=== PATIENT | female | born 2000 | race Caucasian/White ===

== ENCOUNTER 2018-11-10 23:48 | Emergency (ER) | payer SELFPAY ==
[~2018-11-10] VITALS: Ht 165.1 cm; Wt 65.8 kg
[2018-11-11 00:29] LABS: BILIRUBIN,URINE NEGATIVE (NEGATIVE); CLARITY,URINE CLEAR; COLOR,URINE YELLOW; GLUCOSE, URINE (UA) NEGATIVE (NEGATIVE); KETONES,URINE NEGATIVE (NEGATIVE); LEUKOCYTE ESTERASE ,URINE 3+ (NEGATIVE); NITRITE,URINE NEGATIVE (NEGATIVE); PH,URINE 7 (5-9); PROTEIN,URINE NEGATIVE (NEGATIVE); UROBILINOGEN,URINE NORMAL (NORMAL)
[2018-11-11 00:43] LABS: RBC,URINE 0-2 /HPF
[2018-11-11 00:44] LABS: BACTERIA,URINE MODERATE /HPF; TRICHOMONAS,URINE LARGE /HPF
[2018-11-11] MEDS ORDERED: LACTATED RINGERS 1,000 ML IV STA (01:06)
[2018-11-11 01:16] LABS: BASOPHILS % (AUTO) 0 % (0-10); EOSINOPHILS # (AUTO) 0.3 10^3/uL (0.0-0.3); EOSINOPHILS % (AUTO) 4 % (0-10); HEMATOCRIT 35 % (35-52); HEMOGLOBIN 10.4 G/DL (11.5-16.0); LYMPHOCYTES % (AUTO) 34 % (12-44); MEAN CORPUSCULAR HEMOGLOBIN 24 PG (25-34); MEAN CORPUSCULAR HGB CONC 30 G/DL (32-36); MEAN CORPUSCULAR VOLUME 78 FL (80-99); MEAN PLATELET VOLUME 11.5 FL (7.4-10.4); MONOCYTES # (AUTO) 0.9 X 10^3 (0.0-1.0); MONOCYTES % (AUTO) 10 % (0-12); NEUTROPHILS # (AUTO) 4.7 X 10^3 (1.8-7.8); NEUTROPHILS % (AUTO) 53 % (42-75); PLATELET COUNT 430 10^3/uL (130-400); RED CELL DISTRIBUTION WIDTH 15.8 % (10.0-14.5)
[2018-11-11 01:29] LABS: ALANINE AMINOTRANSFERASE 12 U/L (0-55); ALBUMIN 4.8 GM/DL (3.2-4.5); ALKALINE PHOSPHATASE 79 U/L (40-136); BILIRUBIN,TOTAL 0.2 MG/DL (0.1-1.0); BUN/CREATININE RATIO 10; CALCIUM 10.2 MG/DL (8.5-10.1); CARBON DIOXIDE 22 MMOL/L (21-32); CHLORIDE 106 MMOL/L (98-107); CREATININE SERUM 1.12 MG/DL (0.60-1.30); GFR ESTIMATED > 60; GLUCOSE 84 MG/DL (70-105); POTASSIUM 4.5 MMOL/L (3.6-5.0); SODIUM 140 MMOL/L (135-145); TOTAL PROTEIN 8.2 GM/DL (6.4-8.2)
[2018-11-11] MEDS ORDERED: KETOROLAC 30 MG/ML VIAL IVP STA (02:40)
[2018-11-11] MEDS ORDERED: metroNIDAZOLE 500 MG (FLAGYL) TAB PO STA (02:40)
[2018-11-11] MEDS ORDERED: ONDANSETRON 4 MG/2 ML (SDV) Z0FRAN IVP ONE (02:45)
--- NOTE | 2018-11-11 02:49 | ED Abdominal Pain ---
General Chief Complaint: Abdominal/GI Problems Stated Complaint: RT SIDE ABD PAIN Nursing Triage Note: Pt complaining of RLQ pain that radiates to her back, started earlier in the day. Sepsis Screen: No Definite Risk Source of Information: Patient Exam Limitations: No Limitations History of Present Illness Date Seen by Provider: November 11, 2018 Time Seen by Provider: 00:14 Initial Comments Here with lower abdominal pain that radiates to her back on the right side. Also notes blood when wiping after urination. Denies discharge otherwise. Denies vaginal pain. Pain is an going on today. Denies nausea or vomiting. Denies fever or chills. Timing/Duration: 12-24 Hours Severity/Quality: Moderate Location: RLQ, Flank Radiation: Back Activities at Onset: None Modifying Factors: Worsens With Urinating Associated Symptoms: Back Pain; No Fever/Chills, No Fatigue, No Nausea/Vomiting , No Swelling/Mass in Abdomen, No Weakness Allergies and Home Medications Allergies Coded Allergies: No Known Drug Allergies (Unverified , 11/11/18) Patient Home Medication List Home Medication List Reviewed: Yes Review of Systems Review of Systems Constitutional: no symptoms reported EENTM: No Symptoms Reported Respiratory: No Symptoms Reported Cardiovascular: No Symptoms Reported Gastrointestinal: See HPI, Abdominal Pain; Denies Diarrhea, Denies Nausea, Denies Vomiting Genitourinary: Discharge, Hematuria, Pain Musculoskeletal: no symptoms reported Skin: no symptoms reported Psychiatric/Neurological: No Symptoms Reported Past Atvmhpp-Vlejyt-Bbrkwq Hx Past Med/Social Hx: Reviewed Nursing Past Med/Soc Hx Patient Social History Alcohol Use: Denies Use Recreational Drug Use: No Smoking Status: Never a Smoker 2nd Hand Smoke Exposure: No Recent Foreign Travel: No Contact w/Someone Who Travel: No Recent Infectious Disease Expo: No Recent Hopitalizations: No Physical Abuse: No Sexual Abuse: No Mistreated: No Past Medical History Surgeries: No Respiratory: No Cardiac: No Neurological: No Genitourinary: No Gastrointestinal: No Musculoskeletal: No Endocrine: No HEENT: No Cancer: No Psychosocial: Yes Depression Integumentary: No Blood Disorders: No Family Medical History Reviewed Nursing Family Hx Physical Exam Vital Signs Vital Signs - First Documented 11/11/18 00:10 Temp 97.7 Pulse 87 Resp 16 B/P (MAP) 135/60 (85) Pulse Ox 100 O2 Delivery Room Air Capillary Refill : Less Than 3 Seconds Height/Weight/BMI Height: 5'5.00" Weight: 145lbs. oz. 65.664150ur; BMI Method:Estimated General Appearance: WD/WN, no apparent distress HEENT: PERRL/EOMI, pharynx normal Neck: full range of motion, supple Respiratory: lungs clear, normal breath sounds Cardiovascular: regular rate, rhythm, no murmur Gastrointestinal: soft; No guarding, No rebound; tenderness (mild suprapubic) Extremities: non-tender, normal inspection Back: normal inspection, no CVA tenderness, no vertebral tenderness Neurologic/Psychiatric: alert, oriented x 3 Skin: normal color, warm/dry Progress/Results/Core Measures Results/Orders Lab Results Laboratory Tests Test 11/11/18 00:10 11/11/18 00:13 Range/Units White Blood Count 9.0 4.3-11.0 10^3/uL Red Blood Count 4.42 4.35-5.85 10^6/uL Hemoglobin 10.4 L 11.5-16.0 G/DL Hematocrit 35 35-52 % Mean Corpuscular Volume 78 L 80-99 FL Mean Corpuscular Hemoglobin 24 L 25-34 PG Mean Corpuscular Hemoglobin Concent 30 L 32-36 G/DL Red Cell Distribution Width 15.8 H 10.0-14.5 % Platelet Count 430 H 130-400 10^3/uL Mean Platelet Volume 11.5 H 7.4-10.4 FL Neutrophils (%) (Auto) 53 42-75 % Lymphocytes (%) (Auto) 34 12-44 % Monocytes (%) (Auto) 10 0-12 % Eosinophils (%) (Auto) 4 0-10 % Basophils (%) (Auto) 0 0-10 % Neutrophils # (Auto) 4.7 1.8-7.8 X 10^3 Lymphocytes # (Auto) 3.0 1.0-4.0 X 10^3 Monocytes # (Auto) 0.9 0.0-1.0 X 10^3 Eosinophils # (Auto) 0.3 0.0-0.3 10^3/uL Basophils # (Auto) 0.0 0.0-0.1 10^3/uL Sodium Level 140 135-145 MMOL/L Potassium Level 4.5 3.6-5.0 MMOL/L Chloride Level 106 98-107 MMOL/L Carbon Dioxide Level 22 21-32 MMOL/L Anion Gap 12 5-14 MMOL/L Blood Urea Nitrogen 11 7-18 MG/DL Creatinine 1.12 0.60-1.30 MG/DL Estimat Glomerular Filtration Rate > 60 BUN/Creatinine Ratio 10 Glucose Level 84 70-105 MG/DL Calcium Level 10.2 H 8.5-10.1 MG/DL Corrected Calcium 8.5-10.1 MG/DL Total Bilirubin 0.2 0.1-1.0 MG/DL Aspartate Amino Transf (AST/SGOT) 18 5-34 U/L Alanine Aminotransferase (ALT/SGPT) 12 0-55 U/L Alkaline Phosphatase 79 40-136 U/L Total Protein 8.2 6.4-8.2 GM/DL Albumin 4.8 H 3.2-4.5 GM/DL Urine Color YELLOW Urine Clarity CLEAR Urine pH 7 5-9 Urine Specific [place] 1.010 L 1.016-1.022 Urine Protein NEGATIVE NEGATIVE Urine Glucose (UA) NEGATIVE NEGATIVE Urine Ketones NEGATIVE NEGATIVE Urine Nitrite NEGATIVE NEGATIVE Urine Bilirubin NEGATIVE NEGATIVE Urine Urobilinogen NORMAL NORMAL MG/DL Urine Leukocyte Esterase 3+ H NEGATIVE Urine RBC (Auto) 2+ H NEGATIVE Urine RBC 0-2 /HPF Urine WBC 2-5 /HPF Urine Squamous Epithelial Cells 10-25 H /HPF Urine Crystals NONE /LPF Urine Bacteria MODERATE H /HPF Urine Casts NONE /LPF Urine Mucus NEGATIVE /LPF Urine Trichomonas LARGE H /HPF Urine Culture Indicated NO My Orders Orders - PEGGY OSWALD MD Urine Bedside (11/11/18 00:18) Ua Culture If Indicated (11/11/18 00:18) Cbc With Automated Diff (11/11/18 01:06) Comprehensive Metabolic Panel (11/11/18 01:06) Ct Abdomen/Pelvis W (11/11/18 01:06) Lactated Ringers (Lr 1000 Ml Iv Solution (11/11/18 01:06) Toradol 30 Mg Ivp (11/11/18 02:40) Zofran Iv (11/11/18 02:45) Metronidazole Tablet (Flagyl Tablet) (11/11/18 02:40) Neis Masoud Dna Urine Test (11/11/18 02:40) Chlam Dna Probe (11/11/18 02:40) Vital Signs/I&O 11/11/18 00:10 Temp 97.7 Pulse 87 Resp 16 B/P (MAP) 135/60 (85) Pulse Ox 100 O2 Delivery Room Air Blood Pressure Mean: 85 Progress Progress Note : Progress Note Seen and evaluated. IV, labs, UA and UCG ordered. is negative. CT abdomen and pelvis ordered. No acute findings on CT abdomen and pelvis. Normal saline 1 L bolus was given. Trichomonas infection. This is discussed privately with the patient. Flagyl 2 g by mouth given. Zofran 4 mg IV with Flagyl and Toradol 30 mg IV given. Discharged home with return precautions. Patient verbalize understanding of instructions and agreement with plan. GC and chlamydia urine DNA test ordered and will treat if positive. Patient instructed that we will call for positive results. Diagnostic Imaging Diagonstic Imaging: CT Plain Films/CT/US/NM/MRI: abdomen, pelvis Comments No acute findings of the CT abdomen and pelvis Reviewed: Reviewed Night [facility] Study Departure Impression Primary Impression: Urogenital trichomoniasis, unspecified Disposition: HOME, SELF-CARE Condition: Stable Departure-Patient Inst. Decision time for Depature: 02:47 Referrals: NO,LOCAL PHYSICIAN (PCP/Family) Primary Care Physician Patient Instructions: Trichomoniasis Add. Discharge Instructions: All discharge instructions reviewed with patient and/or family. Voiced understanding. You may take ibuprofen 600 mg every 8 hours as needed for pain. You may take Tylenol/acetaminophen 1000 mg every 8 hours as needed for pain. Drink plenty of fluids. Follow-up with your Dr. in a few days for recheck. Return for worse pain , fever, vomiting, weakness, breathing problems or other concerns as needed. If your cultures are positive you will be called. PEGGY OSWALD MD November 11, 2018 02:49
[2018-11-11 03:07] VITALS: BP 135/60
--- NOTE | 2018-11-11 06:08 | Diagnostic Imaging Report ---
PROCEDURE: CT abdomen and pelvis with contrast. TECHNIQUE: Multiple contiguous axial images were obtained through the abdomen and pelvis after administration of intravenous contrast. Auto Exposure Controls were utilized during the CT exam to meet ALARA standards for radiation dose reduction. INDICATION: Abdominal pain. COMPARISON: None. FINDINGS: Lung bases are clear. The liver, gallbladder, pancreas, spleen, adrenals, kidneys, collecting systems and bladder are negative. No evidence of appendicitis. Reproductive structures are grossly unremarkable. There is a large amount of stool throughout the colon. No free intraperitoneal air or fluid. No lymphadenopathy. No evidence of bowel obstruction. No acute osseous findings. IMPRESSION: 1. No acute CT findings in the abdomen or pelvis. 2. Large amount of stool throughout the colon may represent a degree of constipation. Dictated by: Dictated on workstation # [id number]
== END 2018-11-11 03:05 | disposition home or self-care (01) ==
LOC: ER 23:53
DX: A59.09 Other urogenital trichomoniasis (principal); F32.9 Major depressive disorder, single episode, unspecified
CPT/HCPCS: 36415; 74177; 80053; 81000; 84703; 85025; 87591; 96360

== ENCOUNTER 2019-04-24 15:02 | Emergency (ER) | payer OTHER, MEDICAID ==
[~2019-04-24] VITALS: Ht 167 cm; Wt 68.2 kg
[2019-04-24] MEDS ORDERED: ACETAMINOPHEN 325 MG TABLET PO STA (15:59)
[2019-04-24] MEDS ORDERED: TETANUS,DIPTH,PERTUSS P/F (BOOSTRIX) 0.5 ML VIAL IM ONE (16:00)
[2019-04-24] MEDS ORDERED: AMOX-358 PO (16:12)
--- NOTE | 2019-04-24 16:14 | ED Lower Extremity ---
General Chief Complaint: Bite-Animal/Human/Insect Stated Complaint: DOG BITE ON RT LEG Nursing Triage Note: Pt ambulates to triage with c/o dog bit to right lateral thigh. Pt was volunteering at the [email or web address]. Dog has UTD rabies vaccine. Nursing Sepsis Screen: No Definite Risk History of Present Illness Date Seen by Provider: Apr 24, 2019 Time Seen by Provider: 15:45 Initial Comments 18-year-old female presents with dog bite to her right lateral thigh. She was volunteering at the [employer]. The dog is current on rabies vaccine and is staying at the [employer] where he will continue to be monitored. Patient is unsure of her last tetanus vaccine. Onset: just prior to arrival Pain/Injury Location: right thigh Method of Injury: incised Modifying Factors: Improves With Rest Allergies and Home Medications Allergies Coded Allergies: No Known Drug Allergies (Unverified , 11/11/18) Home Medications Amoxicillin/Potassium Clav 1 Each Tablet, 1 EACH PO BID Prescribed by: MARIA T MILTON on 04/24/19 1612 Patient Home Medication List Home Medication List Reviewed: Yes Review of Systems Constitutional: no symptoms reported, see HPI Skin: see HPI, other (dog bite to right lateral thigh.) All Other Systems Reviewed Negative Unless Noted: Yes Past Etwasdg-Efmsqj-Lgbpza Hx Past Med/Social Hx: Reviewed Nursing Past Med/Soc Hx Patient Social History Alcohol Use: Denies Use Recreational Drug Use: No Smoking Status: Current Everyday Smoker Type Used: Cigarettes 2nd Hand Smoke Exposure: No Recent Foreign Travel: No Contact w/Someone Who Travel: No Recent Infectious Disease Expo: No Recent Hopitalizations: No Physical Abuse: No Sexual Abuse: No Mistreated: No Fear: No Seasonal Allergies Seasonal Allergies: No Past Medical History Surgeries: No Respiratory: No Cardiac: No Neurological: No Genitourinary: No Gastrointestinal: No Musculoskeletal: No Endocrine: No HEENT: No Cancer: No Psychosocial: Yes Depression Integumentary: No Blood Disorders: No Physical Exam Vital Signs Vital Signs - First Documented 04/24/19 15:41 Temp 35.3 Pulse 75 Resp 18 B/P (MAP) 118/72 (87) Pulse Ox 100 O2 Delivery Room Air Capillary Refill : Less Than 3 Seconds Height, Weight, BMI Height: 5'5.00" Weight: 145lbs. oz. 65.228853rt; 24.00 BMI Method:Estimated General Appearance: WD/WN, mild distress Cardiovascular: normal peripheral pulses, regular rate, rhythm Respiratory: chest non-tender, lungs clear Legs: right leg pain, right leg soft tissue tenderness (right lateral eye), r ight leg swelling (trace, right thigh) Knees: right knee non-tender, right knee normal inspection, right knee normal range of motion, right knee no evidence of injury Neurologic/Tendon: normal sensation, normal motor functions Neurologic/Psychiatric: no motor/sensory deficits, alert, normal mood/affect, oriented x 3 Skin: normal color, warm/dry, other (2x2 cm puncture wound to thigh, 3 smaller superficial puncture wounds. ) Progress/Results/Core Measures Results/Orders My Orders Orders - MARIA T MILTON Dipht,Pertuss(Acell),Tet Adult (Boostrix (04/24/19 16:00) Acetaminophen Tablet/Caplet (Tylenol T (04/24/19 15:59) Medications Given in ED Current Medications Medications Dose Ordered Sig/Demetri Route Start Time Stop Time Status Last Admin Dose Admin Diphtheria/ Tetanus/Acell Pertussis 0.5 ml ONCE ONCE IM 04/24/19 16:00 04/24/19 16:01 DC 04/24/19 16:09 0.5 ML Vital Signs/I&O 04/24/19 04/24/19 15:41 16:23 Temp 35.3 35.3 Pulse 75 75 Resp 18 18 B/P (MAP) 118/72 (87) 118/72 (87) Pulse Ox 100 100 O2 Delivery Room Air Room Air Blood Pressure Mean: 87 Progress Progress Note : Time: 15:45 Progress Note Wound copiously irrigated with 500 ML's of sterile saline and Hibiclens. Patient tolerated the procedure well. Triple antibiotic ointment and bulky sterile dressing applied. Tylenol 650 mg for pain and tetanus vaccine given. 1610 appointment made for follow-up with Dr. Parrish for later this week. Discharge instructions and return precautions reviewed with the patient. Departure Impression Primary Impression: Dog bite of right thigh Qualified Codes: S71.151A - Open bite, right thigh, initial encounter; W54.0 XXA - Bitten by dog, initial encounter Disposition: HOME, SELF-CARE Condition: Improved Departure-Patient Inst. Decision time for Depature: 16:10 Referrals: DEIRDRE PARRISH MD NO,LOCAL PHYSICIAN (PCP) Primary Care Physician Patient Instructions: Animal Bites (DC) Add. Discharge Instructions: Clean wound thoroughly with peroxide twice a day and apply triple antibiotic ointment with bulky dressings. You have an appointment scheduled with Dr. PARRISH's office on 04/28/19 at 9:30 in the morning. Take your antibiotics one tablet twice daily as prescribed. Ice to right thigh 20 minutes every 2 hours while awake. You may alternate between ibuprofen 600 mg and Tylenol 650 mg every 4 hours for pain and swelling. Return to the emergency department for fever greater than 101 not relieved by Tylenol or ibuprofen, discolored or foul smelling drainage from the leg wound, or new concerns. All discharge instructions reviewed with patient and/or family. Voiced understanding. Scripts Amoxicillin/Potassium Clav (Augmentin 875-125 Tablet) 1 Each Tablet 1 EACH PO BID, #20 TAB 0 Refills Prov: MARIA T MILTON 04/24/19 Copy Copies To 1: LESLIE GUTIÉRREZ APRN, AMY ARNP Apr 24, 2019 16:14
[2019-04-24 16:23] VITALS: BP 118/72
== END 2019-04-24 16:25 | disposition home or self-care (01) ==
LOC: EDUNIT# 15:02 → ER 15:04
DX: S71.151A Open bite, right thigh, initial encounter (principal); F32.9 Major depressive disorder, single episode, unspecified; F17.210 Nicotine dependence, cigarettes, uncomplicated; Z23 Encounter for immunization; W54.0XXA Bitten by dog, initial encounter
CPT/HCPCS: 90715; 99284

== ENCOUNTER 2019-07-20 00:01 | Emergency (ER) | payer MEDICAID, OTHER ==
[~2019-07-20] VITALS: Ht 167 cm; Wt 69.1 kg
[~2019-07-20 00:01] MED LIST: AMOX-358 PO
[2019-07-20 01:08] LABS: BILIRUBIN,URINE NEGATIVE (NEGATIVE); CLARITY,URINE CLEAR; COLOR,URINE YELLOW; GLUCOSE, URINE (UA) NEGATIVE (NEGATIVE); KETONES,URINE TRACE (NEGATIVE); LEUKOCYTE ESTERASE ,URINE NEGATIVE (NEGATIVE); NITRITE,URINE NEGATIVE (NEGATIVE); PROTEIN,URINE NEGATIVE (NEGATIVE)
--- NOTE | 2019-07-20 01:08 | ED GU-Female ---
General Chief Complaint: Abdominal/GI Problems Stated Complaint: ABD PAIN 14 WKS Nursing Triage Note: abdominal pain, vaginal bleeding Nursing Sepsis Screen: No Definite Risk Source: patient Exam Limitations: no limitations History of Present Illness Date Seen by Provider: Jul 20, 2019 Time Seen by Provider: 00:51 Initial Comments Patient presents to ER by private conveyance with her significant other and c yuliet complaint of low pelvic abdominal pain bilateral. She denies dysuria fever discharge but she did have a little spotting when she wiped earlier tonight. Last intercourse was yesterday, Wednesday. She had trichomonas earlier in the which was treated sufficiently. She follows with Dr. Kennedy. She is a at 15 weeks and 3 days based on her EDC of January 07 are or ultrasound at Dr. Kennedy. She denies any fever nausea vomiting diarrhea but she has chronic constipation. Allergies and Home Medications Allergies Coded Allergies: No Known Drug Allergies (Unverified , 11/11/18) Patient Home Medication List Home Medication List Reviewed: Yes Review of Systems Review of Systems Constitutional: No chills, No diaphoresis EENTM: No ear discharge, No ear pain Respiratory: No cough, No short of breath Cardiovascular: No chest pain, No edema Gastrointestinal: abdominal pain; No constipation, No diarrhea, No nausea Genitourinary: denies burning, denies discharge, denies dysuria; hematuria : Yes Expected Date of Delivery: Jan 08, 2020 Musculoskeletal: No back pain, No joint pain Past Ecgfvvn-Esthxo-Piqosl Hx Patient Social History Alcohol Use: Denies Use Recreational Drug Use: No Smoking Status: Current Everyday Smoker Type Used: Cigarettes 2nd Hand Smoke Exposure: No Recent Foreign Travel: No Contact w/Someone Who Travel: No Recent Infectious Disease Expo: No Recent Hopitalizations: No Physical Abuse: No Sexual Abuse: No Mistreated: No Fear: No Immunizations Up To Date Tetanus Booster (TDap): Unknown Seasonal Allergies Seasonal Allergies: No Past Medical History Surgeries: No Respiratory: No Cardiac: No Neurological: No : Yes Expected Date of Delivery: Jan 08, 2020 Last Menstrual Period: Apr 04, 2019 Genitourinary: No Gastrointestinal: No Musculoskeletal: No Endocrine: No HEENT: No Cancer: No Psychosocial: Yes Depression Integumentary: No Blood Disorders: No Physical Exam Vital Signs Vital Signs - First Documented 07/20/19 00:49 Temp 36.7 Pulse 100 Resp 18 B/P (MAP) 124/59 (80) Pulse Ox 99 O2 Delivery Room Air Capillary Refill : Less Than 3 Seconds Height, Weight, BMI Height: 5'5.00" Weight: 145lbs. oz. 65.037506ys; 24.00 BMI Method:Estimated General Appearance: WD/WN, no apparent distress HEENT: normal ENT inspection, pharynx normal Neck: full range of motion, normal inspection Cardiovascular: normal peripheral pulses, regular rate, rhythm Respiratory: no respiratory distress, no accessory muscle use Gastrointestinal: normal bowel sounds, soft, tenderness (suprapubic) Genital/Rectal: normal genital exam (external) Extremities: normal inspection, no pedal edema Neurologic/Psychiatric: alert, normal mood/affect, oriented x 3 Skin: normal color, warm/dry Progress/Results/Core Measures Suspected Sepsis Recent Fever Within 48 Hours: No Infection Criteria Present: None New/Unexplained Altered Menta: No Sepsis Screen: No Definite Risk SIRS Temperature: Pulse: 100 Respiratory Rate: 18 Blood Pressure 124 /59 Mean: 80 Results/Orders Lab Results Laboratory Tests Test 07/20/19 00:53 Range/Units Urine Color YELLOW Urine Clarity CLEAR Urine pH 6.0 5-9 Urine Specific [place] >=1.030 1.016-1.022 Urine Protein NEGATIVE NEGATIVE Urine Glucose (UA) NEGATIVE NEGATIVE Urine Ketones TRACE H NEGATIVE Urine Nitrite NEGATIVE NEGATIVE Urine Bilirubin NEGATIVE NEGATIVE Urine Urobilinogen 1.0 < = 1.0 MG/DL Urine Leukocyte Esterase NEGATIVE NEGATIVE Urine RBC (Auto) 2+ H NEGATIVE Urine RBC 5-10 H /HPF Urine WBC RARE /HPF Urine Squamous Epithelial Cells 2-5 /HPF Urine Crystals NONE /LPF Urine Bacteria TRACE /HPF Urine Casts NONE /LPF Urine Mucus MODERATE H /LPF Urine Culture Indicated NO My Orders Orders - JESS NAVAS Ua Culture If Indicated (07/20/19 00:07) Urine Bedside (07/20/19 00:07) Hydrocodone/Apap 5/325 Tablet (Lortab 5 (07/20/19 01:15) Wet Prep (07/20/19 01:05) Medications Given in ED Current Medications Medications Dose Ordered Sig/Demetri Route Start Time Stop Time Status Last Admin Dose Admin Acetaminophen/ Hydrocodone Bitart 1 tab ONCE ONCE PO 07/20/19 01:15 07/20/19 01:16 DC 07/20/19 01:13 1 TAB Vital Signs/I&O 07/20/19 07/20/19 00:49 01:13 Temp 36.7 36.7 Pulse 100 Resp 18 B/P (MAP) 124/59 (80) Pulse Ox 99 O2 Delivery Room Air Capillary Refill : Less Than 3 Seconds Blood Pressure Mean: 80 Progress Note : Time: 02:00 Progress Note Wet prep all negative except for a few white blood cells. Urinalysis shows microscopic amount of blood. Perhaps the blood she saw on wiping is from the urine however there is no evidence of infection. We can set her up with ultrasound outpatient and have her follow-up with her primary care doctor as necessary. heart tones in the 160 range. Hydrocodone provided good control of her pain. Potentially a kidney stone. We'll discuss imaging versus conservative management. Arab related bleeding from the cervix/vagina versus potential subchorionic bleed? We don't have the ultrasound to compare so we will recommend she follow up with her primary care doctor. Departure Impression Primary Impression: with abdominal pain of lower quadrant, antepartum Additional Impression: Hematuria of unknown etiology Disposition: 01 HOME, SELF-CARE Condition: Stable Departure-Patient Inst. Decision time for Depature: 02:06 Referrals: NO,LOCAL PHYSICIAN (PCP/Family) Primary Care Physician Patient Instructions: Blood in the Urine (Hematuria) in Adults, Stomach Pain in Early Add. Discharge Instructions: There are several reasons that could be causing your stomach pain. Constipation is one. You may possibly be passing a kidney stone. I would suggest using Tylenol for the pain and following up with your [facility]IVE THERAPIST. If you have intractable abdominal pain then you may use one tablet of hydrocodone every 6 hours. This will worsen constipation. MiraLAX 1 capful in 6-8 ounces of fluid 1-2 times a day is safe for cleaning out your constipation. Drink with lots of fluids. All discharge instructions reviewed with patient and/or family. Voiced understanding. Scripts Hydrocodone Bit/Acetaminophen (Hydrocodone/Acetaminophen 5/325mg Tablet) 1 Tab Tab 1 EACH PO Q4-6HR PRN for PAIN-MODERATE MDD 10 for 3 Days, #10 TAB 0 Refills Prov: JESS NAVAS 07/20/19 JESS NAVAS Jul 20, 2019 01:08
[2019-07-20 01:14] LABS: BACTERIA,URINE TRACE /HPF; WBC,URINE RARE /HPF
[2019-07-20] MEDS ORDERED: HYDROcodone/APAP 5 MG/325 MG (LORTAB) TAB PO ONE (01:15)
[2019-07-20] MEDS ORDERED: ACHD5005 PO (02:13)
[2019-07-20 02:21] VITALS: BP 128/50
== END 2019-07-20 02:22 | disposition home or self-care (01) ==
LOC: EDUNIT# 00:01 → ER 00:03
DX: O26.892 Other specified pregnancy related conditions, second trimester (principal); R10.30 Lower abdominal pain, unspecified; R31.9 Hematuria, unspecified; O99.342 Other mental disorders complicating pregnancy, second trimester; F32.9 Major depressive disorder, single episode, unspecified; O99.332 Smoking (tobacco) complicating pregnancy, second trimester; F17.210 Nicotine dependence, cigarettes, uncomplicated; Z3A.15 15 weeks gestation of pregnancy
CPT/HCPCS: 81000; 84703; 87210

== ENCOUNTER 2021-02-28 15:38 | Emergency (ER) | payer MEDICAID ==
[~2021-02-28] VITALS: Ht 167 cm; Wt 56.0 kg
[~2021-02-28 15:38] MED LIST changes: +ACHD5005 PO
--- NOTE | 2021-02-28 16:12 | ED General ---
General Stated Complaint: PEREZ, CRAMPING Source of Information: Patient Exam Limitations: No Limitations (RUTHANN HENNING APRN) History of Present Illness Date Seen by Provider: Feb 28, 2021 Time Seen by Provider: 16:11 Initial Comments To ER with headache, lower abdominal cramping present for 2 weeks since she found out she was at home. G3, P2. No bleeding Timing/Duration: 1 Week (2 weeks) Severity: Moderate Associated Systoms: Denies Symptoms (RUTHANN HENNING APRN) Allergies and Home Medications Allergies Coded Allergies: diphenhydramine (Verified Adverse Reaction, Severe, hallucinations, 02/28/21) Home Medications Cefuroxime Axetil 250 Mg Tablet, 250 MG PO BID Prescribed by: RUTHANN HENNING on 02/28/21 1747 Hydrocodone Bit/Acetaminophen 1 Tab Tab, 1 EACH PO Q4-6HR PRN for PAIN-MODERATE Prescribed by: JESS NAVAS on 07/20/19 0213 Patient Home Medication List Home Medication List Reviewed: Yes (RUTHANN HENNING APRN) Review of Systems Review of Systems Constitutional: see HPI EENTM: see HPI Respiratory: no symptoms reported Cardiovascular: no symptoms reported Genitourinary: no symptoms reported Musculoskeletal: no symptoms reported Skin: no symptoms reported Psychiatric/Neurological: No Symptoms Reported Hematologic/Lymphatic: No Symptoms Reported (RUTHANN HENNING APRN) Past Rwrsbyh-Hbtnsx-Tapsnp Hx Immunizations Up To Date Tetanus Booster (TDap): Unknown (RUTHANN HENNING APRN) Seasonal Allergies Seasonal Allergies: No (RUTHANN HENNING APRN) Past Medical History Surgeries: No Respiratory: No Cardiac: No Neurological: No Genitourinary: No Gastrointestinal: No Musculoskeletal: No Endocrine: No HEENT: No Cancer: No Psychosocial: Yes Depression Integumentary: No Blood Disorders: No (RUTHANN HENNING APRN) Physical Exam Vital Signs Vital Signs - First Documented 02/28/21 16:12 Temp 37.0 Pulse 76 Resp 16 B/P (MAP) 115/64 (81) Pulse Ox 98 O2 Delivery Room Air (COMFORT BALLARD MD) Vital Signs Capillary Refill : (RUTHANN HENNING APRN) Height, Weight, BMI Height: 5'5.00" Weight: 145lbs. oz. 65.726850gb; 24.00 BMI Method:Estimated General Appearance: No Apparent Distress, WD/WN Eyes: Bilateral Eye Normal Inspection, Bilateral Eye PERRL, Bilateral Eye EOMI HEENT: PERRL/EOMI, TMs Normal Neck: Full Range of Motion, Normal Inspection Respiratory: No Accessory Muscle Use, No Respiratory Distress Cardiovascular: Regular Rate, Rhythm, Normal Peripheral Pulses Gastrointestinal: Normal Bowel Sounds, Non Tender, Soft Extremity: Normal Capillary Refill, Normal Inspection Neurologic/Psychiatric: Alert, Oriented x3 Skin: Normal Color, Warm/Dry (RUTHANN HENNING APRN) Progress/Results/Core Measures Suspected Sepsis SIRS Temperature: Pulse: Respiratory Rate: Laboratory Tests 02/28/21 16:25: White Blood Count 11.6H Blood Pressure / Mean: Laboratory Tests 02/28/21 16:25: Creatinine 0.70, Platelet Count 356 (RUTHANN HENNING APRN) Results/Orders Lab Results Laboratory Tests Test 02/28/21 16:25 02/28/21 17:25 Range/Units White Blood Count 11.6 H 4.3-11.0 10^3/uL Red Blood Count 4.03 3.80-5.11 10^6/uL Hemoglobin 12.3 11.5-16.0 g/dL Hematocrit 38 35-52 % Mean Corpuscular Volume 93 80-99 fL Mean Corpuscular Hemoglobin 31 25-34 pg Mean Corpuscular Hemoglobin Concent 33 32-36 g/dL Red Cell Distribution Width 13.7 10.0-14.5 % Platelet Count 356 130-400 10^3/uL Mean Platelet Volume 10.0 9.0-12.2 fL Immature Granulocyte % (Auto) 0 % Neutrophils (%) (Auto) 67 42-75 % Lymphocytes (%) (Auto) 23 12-44 % Monocytes (%) (Auto) 8 0-12 % Eosinophils (%) (Auto) 2 0-10 % Basophils (%) (Auto) 0 0-10 % Neutrophils # (Auto) 7.8 1.8-7.8 10^3/uL Lymphocytes # (Auto) 2.6 1.0-4.0 10^3/uL Monocytes # (Auto) 1.0 0.0-1.0 10^3/uL Eosinophils # (Auto) 0.2 0.0-0.3 10^3/uL Basophils # (Auto) 0.0 0.0-0.1 10^3/uL Immature Granulocyte # (Auto) 0.0 0.0-0.1 10^3/uL Sodium Level 135 135-145 MMOL/L Potassium Level 3.8 3.6-5.0 MMOL/L Chloride Level 104 98-107 MMOL/L Carbon Dioxide Level 26 21-32 MMOL/L Anion Gap 5 5-14 MMOL/L Blood Urea Nitrogen 8 7-18 MG/DL Creatinine 0.70 0.60-1.30 MG/DL Estimat Glomerular Filtration Rate 105 BUN/Creatinine Ratio 11 Glucose Level 61 L 70-105 MG/DL Calcium Level 9.5 8.5-10.1 MG/DL Human Chorionic Gonadotropin, Quant 050209 H <5 MIU/ML Serum Test, Qualitative POSITIVE NEGATIVE Urine Color YELLOW Urine Clarity SL CLOUDY Urine pH 6.0 5-9 Urine Specific [place] >=1.030 1.016-1.022 Urine Protein NEGATIVE NEGATIVE Urine Glucose (UA) NEGATIVE NEGATIVE Urine Ketones NEGATIVE NEGATIVE Urine Nitrite POSITIVE H NEGATIVE Urine Bilirubin NEGATIVE NEGATIVE Urine Urobilinogen 0.2 < = 1.0 MG/DL Urine Leukocyte Esterase NEGATIVE NEGATIVE Urine RBC (Auto) NEGATIVE NEGATIVE Urine RBC NONE /HPF Urine WBC 2-5 /HPF Urine Squamous Epithelial Cells 10-25 H /HPF Urine Crystals NONE /LPF Urine Bacteria LARGE H /HPF Urine Casts NONE /LPF Urine Mucus SMALL H /LPF Urine Culture Indicated YES Urine Opiates Screen NEGATIVE NEGATIVE Urine Oxycodone Screen NEGATIVE NEGATIVE Urine Methadone Screen NEGATIVE NEGATIVE Urine Propoxyphene Screen NEGATIVE NEGATIVE Urine Barbiturates Screen NEGATIVE NEGATIVE Ur Tricyclic Antidepressants Screen NEGATIVE NEGATIVE Urine Phencyclidine Screen NEGATIVE NEGATIVE Urine Amphetamines Screen POSITIVE H NEGATIVE Urine Methamphetamines Screen POSITIVE H NEGATIVE Urine Benzodiazepines Screen NEGATIVE NEGATIVE Urine Cocaine Screen NEGATIVE NEGATIVE Urine Cannabinoids Screen NEGATIVE NEGATIVE (COMFORT BALLARD MD) Vital Signs/I&O 02/28/21 02/28/21 16:12 17:49 Temp 37.0 37.0 Pulse 76 74 Resp 16 16 B/P (MAP) 115/64 (81) 116/68 (81) Pulse Ox 98 99 O2 Delivery Room Air (COMFORT BALLARD MD) Vital Signs/I&O Capillary Refill : (RUTHANN HENNING APRN) Diagnostic Imaging Diagonstic Imaging: Ultrasound Comments NAME: DELORIS SCHMID [facility] REC#: [id number] PT STATUS: REG ER : 2000 PHYSICIAN: RUTHANN HENNING APRN ADMIT DATE: 02/28/21/ER Draft Date of Exam:02/28/21 US OB SINGLE FETUS<14 [id number] PROCEDURE: US OB SINGLE FETUS <14 WKS. TECHNIQUE: Multiple real-time grayscale images were obtained over the gravid uterus in various projections. INDICATION: Nausea and cramping during . Intrauterine gestational sac is present. There is normal morphology. pole is present with a crown-rump length of 1.3 cm. This indicates a gestational age of 7 weeks and 4 days. No eloina-gestational hematoma is identified. Embryonic cardiac activity is present at a rate of 127 bpm. Maternal adnexal regions are unremarkable although the ovaries were not visualized. IMPRESSION: Unremarkable early intrauterine gestation with estimated age of 7 weeks and 4 days. Sonographic EDC is 10/13/2021. 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 Decision time for Depature: 17:26 (RUTHANN HENNING APRN) Referrals: NO,LOCAL PHYSICIAN (PCP/Family) Primary Care Physician Patient Instructions: No Instuctions Given Scripts Cefuroxime Axetil (Cefuroxime) 250 Mg Tablet 250 MG PO BID, #10 TAB Prov: RUTHANN HENNING APRN 02/28/21 ATTENDING PHYSICIAN NOTE: I was physically present as attending physician in the emergency department during the care of this patient, but I was not directly involved in the decision making or delivery of care for this patient. (COMFORT BALLARD MD) RUTHANN HENNING APRN Feb 28, 2021 16:12 COMFORT BALLARD MD Mar 02, 2021 07:35
[2021-02-28] MEDS ORDERED: LACTATED RINGERS 1,000 ML IV SCH (16:30)
[2021-02-28] MEDS ORDERED: diphenhydrAMINE 50 MG/ML INJ (BENADRYL) IVP ONE (16:30)
[2021-02-28] MEDS ORDERED: ONDANSETRON 4 MG/2 ML (SDV) Z0FRAN IVP ONE (16:30)
[2021-02-28 16:57] LABS: BASOPHILS % (AUTO) 0 % (0-10); EOSINOPHILS # (AUTO) 0.2 10^3/uL (0.0-0.3); EOSINOPHILS % (AUTO) 2 % (0-10); HEMATOCRIT 38 % (35-52); HEMOGLOBIN 12.3 g/dL (11.5-16.0); LYMPHOCYTES # (AUTO) 2.6 10^3/uL (1.0-4.0); LYMPHOCYTES % (AUTO) 23 % (12-44); MEAN CORPUSCULAR HEMOGLOBIN 31 pg (25-34); MEAN CORPUSCULAR HGB CONC 33 g/dL (32-36); MEAN CORPUSCULAR VOLUME 93 fL (80-99); MONOCYTES % (AUTO) 8 % (0-12); NEUTROPHILS # (AUTO) 7.8 10^3/uL (1.8-7.8); NEUTROPHILS % (AUTO) 67 % (42-75); PLATELET COUNT 356 10^3/uL (130-400); WHITE BLOOD COUNT 11.6 10^3/uL (4.3-11.0)
[2021-02-28 16:59] LABS: POTASSIUM 3.8 MMOL/L (3.6-5.0)
--- NOTE | 2021-02-28 16:59 | Diagnostic Imaging Report ---
PROCEDURE: US OB SINGLE FETUS <14 WKS. TECHNIQUE: Multiple real-time grayscale images were obtained over the gravid uterus in various projections. INDICATION: Nausea and cramping during . Intrauterine gestational sac is present. There is normal morphology. pole is present with a crown-rump length of 1.3 cm. This indicates a gestational age of 7 weeks and 4 days. No eloina-gestational hematoma is identified. Embryonic cardiac activity is present at a rate of 127 bpm. Maternal adnexal regions are unremarkable although the ovaries were not visualized. IMPRESSION: Unremarkable early intrauterine gestation with estimated age of 7 weeks and 4 days. Sonographic EDC is 10/13/2021. Dictated by: Dictated on workstation # [id number]
[2021-02-28 17:01] LABS: CALCIUM 9.5 MG/DL (8.5-10.1)
[2021-02-28 17:05] LABS: CREATININE SERUM 0.7 MG/DL (0.60-1.30)
[2021-02-28 17:32] LABS: BILIRUBIN,URINE NEGATIVE (NEGATIVE); COLOR,URINE YELLOW; GLUCOSE, URINE (UA) NEGATIVE (NEGATIVE); KETONES,URINE NEGATIVE (NEGATIVE); LEUKOCYTE ESTERASE ,URINE NEGATIVE (NEGATIVE); NITRITE,URINE POSITIVE (NEGATIVE); PROTEIN,URINE NEGATIVE (NEGATIVE)
[2021-02-28 17:39] LABS: BACTERIA,URINE LARGE /HPF; CLARITY,URINE SL CLOUDY
[2021-02-28 17:44] LABS: AMPHETAMINE SCREEN, URINE POSITIVE (NEGATIVE); BARBITURATE SCREEN URINE NEGATIVE (NEGATIVE); BENZODIAZEPINES SCREEN URINE NEGATIVE (NEGATIVE); CANNABINOID SCREEN, URINE NEGATIVE (NEGATIVE); COCAINE SCREEN URINE NEGATIVE (NEGATIVE); METHADONE STAT NEGATIVE (NEGATIVE); METHAMPHETAMINE SCREEN URINE S POSITIVE (NEGATIVE); OPIATE SCREEN URINE NEGATIVE (NEGATIVE); OXYCODONE STAT NEGATIVE (NEGATIVE); PROPOXYPHENE STAT NEGATIVE (NEGATIVE); TRICYCLIC ANTIDEPRESSANTS SCRE NEGATIVE (NEGATIVE)
[2021-02-28] MEDS ORDERED: CEFU250T80 PO (17:47)
[2021-02-28 17:49] VITALS: BP 116/68
== END 2021-02-28 17:49 | disposition home or self-care (01) ==
LOC: EDUNIT# 15:38 → ER 15:41
DX: O23.41 Unspecified infection of urinary tract in pregnancy, first trimester (principal); O99.321 Drug use complicating pregnancy, first trimester; F15.10 Other stimulant abuse, uncomplicated; Z3A.01 Less than 8 weeks gestation of pregnancy
CPT/HCPCS: 36415; 76801; 80048; 80306; 81000; 84702; 84703; 85025; 87077; 87088; 87186

== ENCOUNTER 2021-09-30 18:50 | Inpatient (IN) | payer OTHER ==
[~2021-09-30 18:50] MED LIST changes: +CEFU250T80 PO
[2021-09-30] MEDS ORDERED: LACTATED RINGERS 1,000 ML IV ONE (19:00)
[2021-09-30 19:11] LABS: BASOPHILS # (AUTO) 0.1 10^3/uL (0.0-0.1); BASOPHILS % (AUTO) 0 % (0-10); EOSINOPHILS # (AUTO) 0.1 10^3/uL (0.0-0.3); EOSINOPHILS % (AUTO) 0 % (0-10); HEMATOCRIT 32 % (35-52); HEMOGLOBIN 9.9 g/dL (11.5-16.0); LYMPHOCYTES # (AUTO) 2.7 10^3/uL (1.0-4.0); LYMPHOCYTES % (AUTO) 13 % (12-44); MEAN CORPUSCULAR HEMOGLOBIN 26 pg (25-34); MEAN CORPUSCULAR HGB CONC 31 g/dL (32-36); MEAN CORPUSCULAR VOLUME 84 fL (80-99); MEAN PLATELET VOLUME 11.3 fL (9.0-12.2); MONOCYTES # (AUTO) 1.1 10^3/uL (0.0-1.0); MONOCYTES % (AUTO) 5 % (0-12); NEUTROPHILS # (AUTO) 17.3 10^3/uL (1.8-7.8); NEUTROPHILS % (AUTO) 80 % (42-75); PLATELET COUNT 368 10^3/uL (130-400); WHITE BLOOD COUNT 21.5 10^3/uL (4.3-11.0)
[2021-09-30] MEDS ORDERED: LIDOCAINE UROJET 2% GEL 10 ML PKG ONE (19:14)
[2021-09-30 19:31] LABS: ALANINE AMINOTRANSFERASE 33 U/L (0-55); ALBUMIN 3.4 GM/DL (3.2-4.5); ALKALINE PHOSPHATASE 297 U/L (40-136); AMYLASE 59 U/L (25-125); BILIRUBIN,TOTAL 0.4 MG/DL (0.1-1.0); BUN/CREATININE RATIO 14; CALCIUM 8.7 MG/DL (8.5-10.1); CARBON DIOXIDE 17 MMOL/L (21-32); CHLORIDE 109 MMOL/L (98-107); CREATININE SERUM 0.73 MG/DL (0.60-1.30); GFR ESTIMATED 118; GLUCOSE 79 MG/DL (70-105); MAGNESIUM 1.8 MG/DL (1.6-2.4); POTASSIUM 4.5 MMOL/L (3.6-5.0); SODIUM 138 MMOL/L (135-145); TOTAL PROTEIN 7.1 GM/DL (6.4-8.2)
[2021-09-30] MEDS ORDERED: D5 LR IV SOLUTION 1,000 ML IV ONE (19:33)
[2021-09-30] MEDS ORDERED: OXYTOCIN PRE-MIX DRIP 500 ML IV ONE (19:33)
--- NOTE | 2021-09-30 19:33 | ED General ---
General Stated Complaint: OVERDOSE Source of Information: Patient (PT IS POOR HISTORIAN--STATES SHE HAS NO RECOLLECTION OF EVENTS OF TODAY. ), EMS History of Present Illness Date Seen by Provider: Sep 30, 2021 Time Seen by Provider: 18:48 Initial Comments PT ARRIVES VIA [facility] FROM HOME IN [place], [place] PT IS APPROXIMATELY 39 WEEKS , PER EMS--NO OB CARE, PER EMS. EMS WAS GIVEN EDC OF 10/07/21 BY BOYFRIEND PT WITH REPORTED OVERDOSE OF FENTANYL EMS GAVE NARCAN 2 MG INTRANASALLY, FOLLOWED BY A TOTAL OF 2 MG IV PT IS NOW AWAKE AND TALKING--WAS COMBATIVE INITIALLY FOR EMS, AFTER BEING GIVEN NARCAN PER EMS, PT'S BOYFRIEND CALLED FOR PT WITH FENTANYL OVERDOSE AND UNRESPONSIVENESS HE REPORTED TO EMS THAT PT SMOKES IT WITH A PIPE HE REPORTED TO EMS THAT THEY HAD AN ARGUMENT AND SHE LEFT, TELLING HIM SHE WAS GOING TO GET SOME FENTANYL HE LATER FOUND HER FACE DOWN ON THE FLOOR, UNRESPONSIVE AND CYANOTIC AND CALLED EMS. ON EMS ARRIVAL AT THE SCENE, PT WAS LAYING ON FLOOR FACE-DOWN, WITH DRIED BLOOD AROUND HER MOUTH, AND LIQUID ON THE FLOOR AND PANTS WERE SOAKED--IS UNKNOWN IF THIS WAS URINE OR AMNIOTIC FLUID NO BLOOD ON PANTS OR GENITAL AREA. O2 SAT AROUND 80% INITIALLY WHEN EMS ARRIVED AT THE SCENE, THEY PLACED PT ON O2 AT 4L/NC AND GAVE NARCAN. ON ARRIVAL HERE, PT IS AWAKE AND TALKING BUT IS SOMEWHAT DISORIENTED, AND HAS NO RECOLLECTION OF EVENTS AND STATES "I DON'T KNOW AND I DON'T REMEMBER" WHEN ASKED WHAT HAPPENED PT DOES STATE THAT SHE IS DUE 10/22/21 PT STATES THIS IS 3RD , WITH 1 LIVE AND 1 MISCARRIAGE. OB NURSE IS HERE IN ER PRIOR TO PT'S ARRIVAL PT IS ACTIVELY SERENA ON ARRIVAL PT HAS FEW PRIOR VISITS HERE, AND TESTED + FOR METHAMPHETAMINES ON AT LEAST 1 PRIOR VISIT DURING THIS ON 02/28/21 HAD OB ULTRASOUND AT THAT VISIT WHICH SHOWED EDC 10/13/21. BOYFRIEND DOES NOT ACCOMPANY PT TO ER, NOR HAS HE CALLED TO CHECK ON PATIENT. PCP: NONE Allergies and Home Medications Allergies Coded Allergies: diphenhydramine (Verified Adverse Reaction, Severe, hallucinations, 02/28/21) Patient Home Medication List Home Medication List Reviewed: No Cefuroxime Axetil (Cefuroxime) 250 Mg Tablet, 250 MG PO BID Prescribed by: RUTHANN HENNING on 02/28/21 174 Hydrocodone Bit/Acetaminophen (Lortab 5 Mg Tablet) 1 Tab Tab, 1 EACH PO Q4-6HR PRN for PAIN-MODERATE Prescribed by: JESS NAVAS on 07/20/19 0213 Review of Systems Review of Systems Constitutional: other (PT IS VERY LIMITED HISTORIAN) Genitourinary: see HPI Past Ryuussj-Uecfhb-Mbcoyk Hx Patient Social History Tobacco Use?: Yes Tobacco type used: Cigarettes Substance use?: Yes Substance type: Methamphetamine, Opiates/Opioids Additional substance use comme: FENTANYL Immunizations Up To Date Tetanus Booster (TDap): Unknown Seasonal Allergies Seasonal Allergies: No Past Medical History Surgeries: No Respiratory: No Cardiac: No Neurological: No : Yes Hx : 3 Hx Para: 1 Hx Total # of Abortions (Sp): 1 Genitourinary: No Gastrointestinal: No Musculoskeletal: No Endocrine: No HEENT: No Cancer: No Psychosocial: Yes (SUBSTANCE ABUSE) Depression Integumentary: No (TATTOOS) Blood Disorders: No Physical Exam Vital Signs Capillary Refill : Height, Weight, BMI Height: 5'5.00" Weight: 145lbs. oz. 65.546172if; 20.00 BMI Method:Estimated General Appearance: Other (, APPEARS FULL TERM/NEAR TERM. PT IS AWAKE AND TALKING BUT SOMEWHAT DISORIENTED. PT WITH CONSTANT MOVEMENTS. ) HEENT: Other (DRIED BLOOD ON LIP, BUT NO OBVIOUS EVIDENCE OF INTRA-ORAL INJURY OR FACIAL OR HEAD TRAUMA NOTED AT THIS TIME. NO C/O NECK PAIN ) Respiratory: Normal Breath Sounds, No Accessory Muscle Use, No Respiratory Distress Cardiovascular: No Edema, No JVD, No Murmur, Normal Peripheral Pulses, Tachycardia Gastrointestinal: Other (GRAVID UTERUS. ) Genital/Rectal: Other (NORMAL EXTERNAL GENITALIA, NO BLOOD OR FLUID AT INTROIT US. ) Extremity: No Pedal Edema Neurologic/Psychiatric: Alert, No Motor/Sensory Deficits, Other (ORIENTED TO SELF, DISORIENTED TO PLACE, TIME, SITUATION ON ARRIVAL) Skin: Other (LEGS MOTTLED AND COOL. CAP REFILL < 5 SECONDS. EXTENSIVE TATTOOS OVER MOST OF BODY) Progress/Results/Core Measures Suspected Sepsis SIRS Temperature: Pulse: Respiratory Rate: Laboratory Tests 09/30/21 18:55: White Blood Count 21.5H Blood Pressure / Mean: Laboratory Tests 09/30/21 18:55: Creatinine 0.73, Platelet Count 368, Total Bilirubin 0.4 Results/Orders Lab Results Laboratory Tests Test 09/30/21 18:55 09/30/21 19:03 Range/Units White Blood Count 21.5 H 4.3-11.0 10^3/uL Red Blood Count 3.80 3.80-5.11 10^6/uL Hemoglobin 9.9 L 11.5-16.0 g/dL Hematocrit 32 L 35-52 % Mean Corpuscular Volume 84 80-99 fL Mean Corpuscular Hemoglobin 26 25-34 pg Mean Corpuscular Hemoglobin Concent 31 L 32-36 g/dL Red Cell Distribution Width 14.6 H 10.0-14.5 % Platelet Count 368 130-400 10^3/uL Mean Platelet Volume 11.3 9.0-12.2 fL Immature Granulocyte % (Auto) 1 % Neutrophils (%) (Auto) 80 H 42-75 % Lymphocytes (%) (Auto) 13 12-44 % Monocytes (%) (Auto) 5 0-12 % Eosinophils (%) (Auto) 0 0-10 % Basophils (%) (Auto) 0 0-10 % Neutrophils # (Auto) 17.3 H 1.8-7.8 10^3/uL Lymphocytes # (Auto) 2.7 1.0-4.0 10^3/uL Monocytes # (Auto) 1.1 H 0.0-1.0 10^3/uL Eosinophils # (Auto) 0.1 0.0-0.3 10^3/uL Basophils # (Auto) 0.1 0.0-0.1 10^3/uL Immature Granulocyte # (Auto) 0.3 H 0.0-0.1 10^3/uL Sodium Level 138 135-145 MMOL/L Potassium Level 4.5 3.6-5.0 MMOL/L Chloride Level 109 H 98-107 MMOL/L Carbon Dioxide Level 17 L 21-32 MMOL/L Anion Gap 12 5-14 MMOL/L Blood Urea Nitrogen 10 7-18 MG/DL Creatinine 0.73 0.60-1.30 MG/DL Estimat Glomerular Filtration Rate 118 BUN/Creatinine Ratio 14 Glucose Level 79 70-105 MG/DL Calcium Level 8.7 8.5-10.1 MG/DL Corrected Calcium 9.2 8.5-10.1 MG/DL Magnesium Level 1.8 1.6-2.4 MG/DL Total Bilirubin 0.4 0.1-1.0 MG/DL Aspartate Amino Transf (AST/SGOT) 31 5-34 U/L Alanine Aminotransferase (ALT/SGPT) 33 0-55 U/L Alkaline Phosphatase 297 H 40-136 U/L Lactate Dehydrogenase 223 H 125-220 U/L Total Protein 7.1 6.4-8.2 GM/DL Albumin 3.4 3.2-4.5 GM/DL Amylase Level 59 25-125 U/L My Orders Orders - LINH WALKER DO Ed Iv/Invasive Line Start (09/30/21 18:54) Ekg Tracing (09/30/21 18:54) O2 (09/30/21 18:54) Monitor-Rhythm Ecg Trace Only (09/30/21 18:54) Straight Cath For Spec.-Adult (09/30/21 18:54) Acetaminophen (09/30/21 18:54) Alcohol (09/30/21 18:54) Amylase (09/30/21 18:54) Cbc With Automated Diff (09/30/21 18:54) Comprehensive Metabolic Panel (09/30/21 18:54) Drug Screen Stat (Urine) (09/30/21 18:54) Magnesium (09/30/21 18:54) Ua Culture If Indicated (09/30/21 18:54) Abo Rh Type (09/30/21 18:54) Ed Iv/Invasive Line Start (09/30/21 18:54) Lactated Ringers (Lr 1000 Ml Iv Solution (09/30/21 19:00) LDH (09/30/21 18:54) Covid 19 Inhouse Test (09/30/21 18:54) Influenza A And B By Pcr (09/30/21 18:54) Isolation Central Supply Req (09/30/21 18:54) Manual Differential (09/30/21 18:55) Rupture Of Membrane (Rom) (09/30/21 19:14) Lidocaine 2% (Urojet) (Xylocaine Urojet) (09/30/21 19:14) Type And Screen (09/30/21 19:16) Vital Signs/I&O Capillary Refill : Progress Note : Progress Note OB STAFF MEMBER / RN HERE ON PT'S ARRIVAL AND IMMEDIATELY PLACED ON MONITOR. FHR 140, PT ACTIVELY SERENA EVERY 2 MINUTES PT WITH O2 SATS IN MID 90'S ON O2 AT 2L/NC PT HYPERTENSIVE 140'S/100'S ON ARRIVAL HR 110'S ON ARRIVAL NO BLEEDING OR OBVIOUS FLUID LEAKAGE BEDSIDE AMNIO TEST IS NEGATIVE ON DR. ROTHMAN'S EXAM, PT IS DILATED 9 CM. ECG Initial ECG Impression Date: Sep 30, 2021 Initial ECG Impression Time: 18:54 Initial ECG Rate: 93 Initial ECG Rhythm: Normal Sinus Departure Communication (Admissions) 1858--SPOKE WITH DR. ROTHMAN, OB RN IMCU. WILL BE DOWN TO SEE PT 1911--DR. ROTHMAN HERE TO SEE PT, CARE TURNED OVER TO HER 1919--PT BEING TRANSPORTED TO OB DEPT Impression Primary Impression: Drug overdose Additional Impressions: Active labor Illicit drug use UTI (urinary tract infection) Hypertension affecting in third trimester Disposition: ADMITTED INPATIENT Condition: Stable Admissions Decision to Admit Reason: Admit from ER (General) Decision to Admit/Date: Sep 30, 2021 Time/Decision to Admit Time: 19:15 Departure-Patient Inst. Referrals: NO,LOCAL PHYSICIAN (PCP/Family) Primary Care Physician LINH WALKER DO Sep 30, 2021 19:33
[2021-09-30] MEDS: D5 LR IV SOLUTION 1,000 ML IV SCH (19:35)
[2021-09-30 19:49] LABS: ACETAMINOPHEN < 10 UG/ML (10-30)
[2021-09-30 19:52] LABS: INR 0.9 (0.8-1.4); PROTHROMBIN TIME PATIENT 12.2 SEC (12.2-14.7)
[2021-09-30 19:54] LABS: NEUTROPHILS % (MANUAL) 81 %
[2021-09-30 19:55] VITALS: BP 141/63
[2021-09-30 19:55] LABS: LYMPHOCYTES % (MANUAL) 12 %; MONOCYTES % (MANUAL) 7 %; RBC MORPH NORMAL
[2021-09-30] MEDS ORDERED: NALOXONE 0.4 MG/ML 1 ML (NARCAN) VIAL ONE ×2 (20:02→20:41)
[2021-09-30] MEDS: NALOXONE 0.4 MG/ML 1 ML (NARCAN) VIAL IV PRN ×2 (20:03→20:49)
[2021-09-30 20:12] LABS: BILIRUBIN,URINE NEGATIVE (NEGATIVE); CLARITY,URINE CLEAR; COLOR,URINE YELLOW; GLUCOSE, URINE (UA) NEGATIVE (NEGATIVE); KETONES,URINE NEGATIVE (NEGATIVE); LEUKOCYTE ESTERASE ,URINE TRACE (NEGATIVE); NITRITE,URINE NEGATIVE (NEGATIVE); PH,URINE 6.5 (5-9); PROTEIN,URINE TRACE (NEGATIVE)
[2021-09-30 20:20] LABS: BACTERIA,URINE LARGE /HPF; RBC,URINE 0-2 /HPF; SQUAMOUS EPITHELIAL CELL,UR 0-2 /HPF
[2021-09-30 20:29] LABS: AMPHETAMINE SCREEN, URINE POSITIVE (NEGATIVE); BARBITURATE SCREEN URINE NEGATIVE (NEGATIVE); BENZODIAZEPINES SCREEN URINE NEGATIVE (NEGATIVE); CANNABINOID SCREEN, URINE NEGATIVE (NEGATIVE); COCAINE SCREEN URINE NEGATIVE (NEGATIVE); METHADONE STAT NEGATIVE (NEGATIVE); METHAMPHETAMINE SCREEN URINE S POSITIVE (NEGATIVE); OPIATE SCREEN URINE NEGATIVE (NEGATIVE); OXYCODONE STAT NEGATIVE (NEGATIVE); PROPOXYPHENE STAT NEGATIVE (NEGATIVE); TRICYCLIC ANTIDEPRESSANTS SCRE NEGATIVE (NEGATIVE)
[2021-09-30] MEDS: OXYTOCIN PRE-MIX DRIP 500 ML IV SCH ×2 (21:20→21:54)
--- NOTE | 2021-09-30 21:30 | History & Physical-OB ---
OB - Chief Complaint & HPI Date/Time Date of Admission: Date of Admission: Sep 30, 2021 at 19:41 Date seen by a Provider: Oct 01, 2021 Time Seen by a Provider: 19:10 Chief Complaint/History OB-Reason for Admission/Chief: drug overdose Hx : 3 Hx Para: 1 Expected Date of Delivery: Oct 13, 2021 Gestational Age in Weeks: 38 Gestational Age in Days: 1 Other reason for admission: I was called by the emergency room physician at 1659 because a patient was arriving via EMS due to a reported fentanyl overdose. She was also . The circumstances behind the overdose are unclear to me. There is information that SO told the EMS technicians that they had had an argument and that the patient said she was leaving and she was going to find some fentanyl. And then at a later time he found her unresponsive on her face at the home. But I do not have this directly from either the patient or the SO. SO is not present. The patient was reportedly on her face and unresponsive with an O2 sat of 80%. When I walked into the room in the ED, the patient is responsive and thrashing and the RNs are trying to do a straight cath. I asked them to get some topical lidocaine gel and then I would do the straight cath myself. No one had checked the patient but she is reportedly not ruptured. They did a S-ROM test because apparently her clothing was wet and that was unsure if this was urine or rupture membranes. The S-ROM test was negative. I was able to examine her and cervix is at least 9 cm dilated. We do have a nonstress test that shows contractions every 2 minutes and a baseline heart rate in the 130s. The tracing is category 1. On initial presentation I was told that the patient had a blood pressure of 140/100. But more recent blood pressures are in the 150s over 90s. They have drawn labs and have an IV started from the EMS technicians. I did a bedside ultrasound that revealed a cephalic presentation. At this point we opted to move the patient to labor and delivery as delivery would be imminent. And then we could do further evaluation and straight cath as indicated upstairs. The patient does not have any recollection of what has happened today. But according to the day nurses there has been several people that have called checking on the whereabouts of this patient because she told them she was coming to the hospital because she was diane. The first call came in the mid afternoon and the person on the phone stated that the patient had told her that she started having contractions this morning. The patient has reportedly had no care. I was able to find an ultrasound report from an emergency room visit in February that was done at 7 weeks. Giving a due date of 10/13/2021. The patient states that she is due October 22, but that SO states that she is due October 12. I was unsure where these dates came from. When the patient was lucid for a few moments she states that she saw a doctor in [place] who did an ultrasound and told her that she was having a girl. the patient received 2 doses of intranasal Narcan en route and a dose of IV Narcan in the ED/ Admission Nurse Assessment Rev: Yes History of Labs no labs available Other ED information from Dr. Saenz - PT ARRIVES VIA [facility] FROM HOME IN [place], [place] PT IS APPROXIMATELY 39 WEEKS , PER EMS--NO OB CARE, PER EMS. EMS WAS GIVEN EDC OF 10/07/21 BY BOYFRIEND PT WITH REPORTED OVERDOSE OF FENTANYL EMS GAVE NARCAN 2 MG INTRANASALLY, FOLLOWED BY A TOTAL OF 2 MG IV PT IS NOW AWAKE AND TALKING--WAS COMBATIVE INITIALLY FOR EMS, AFTER BEING GIVEN NARCAN PER EMS, PT'S BOYFRIEND CALLED FOR PT WITH FENTANYL OVERDOSE AND UNRESPONSIVENESS HE REPORTED TO EMS THAT PT SMOKES IT WITH A PIPE HE REPORTED TO EMS THAT THEY HAD AN ARGUMENT AND SHE LEFT, TELLING HIM SHE WAS GOING TO GET SOME FENTANYL HE LATER FOUND HER FACE DOWN ON THE FLOOR, UNRESPONSIVE AND CYANOTIC AND CALLED EMS. ON EMS ARRIVAL, PT WAS LAYING ON FLOOR FACE-DOWN, WITH BLOOD AROUND HER MOUTH, AND LIQUID ON THE FLOOR AND PANTS WERE SOAKED--IS UNKNOWN IF THIS WAS URINE OR AMNIOTIC FLUID NO BLOOD ON PANTS OR GENITAL AREA. O2 SAT AROUND 80% INITIALLY WHEN EMS ARRIVED AT THE SCENE, THEY PLACED PT ON O2 AT 4L/NC AND GAVE NARCAN. ON ARRIVAL HERE, PT IS AWAKE AND TALKING BUT IS SOMEWHAT DISORIENTED, AND HAS NO RECOLLECTION OF EVENTS AND STATES "I DON'T KNOW AND I DON'T REMEMBER" WHEN ASKED WHAT HAPPENED PT DOES STATE THAT SHE IS DUE 10/22/21 PT STATES THIS IS 3RD , WITH 1 LIVE AND 1 MISCARRIAGE. OB NURSE IS HERE IN ER PRIOR TO PT'S ARRIVAL PT IS ACTIVELY DIANE ON ARRIVAL PT HAS FEW PRIOR VISITS HERE, AND TESTED + FOR METHAMPHETAMINES ON AT LEAST 1 PRIOR VISIT DURING THIS ON 02/28/21 HAD OB ULTRASOUND AT THAT VISIT WHICH SHOWED EDC 10/13/21. BOYFRIEND DOES NOT ACCOMPANY PT TO ER, NOR HAS HE CALLED TO CHECK ON PATIENT. Allergies and Home Medications Allergies Coded Allergies: diphenhydramine (Verified Adverse Reaction, Severe, hallucinations, 02/28/21) Patient Home Medication List Home Medication List Reviewed: Yes Discontinued Medications Cefuroxime Axetil (Cefuroxime) 250 Mg Tablet, 250 MG PO BID Prescribed by: RUTHANN HENNING on 02/28/21 1747 Last Action: Discontinued Hydrocodone Bit/Acetaminophen (Lortab 5 Mg Tablet) 1 Tab Tab, 1 EACH PO Q4-6HR PRN for PAIN-MODERATE Prescribed by: JESS NAVAS on 07/20/19 0213 Last Action: Discontinued OB - History Hx of Present Care: No Ultrasounds: Other (unknown) Medical Complications: Other (drug overdose) Information Pre-Hospital Medication Admins: Narcan Obstetrical History Hx : 3 Hx Para: 1 Hx # Term Pregnancies: 1 Number of Living Children: 1 Hx Total # of Abortions (Spona: 1 (reports that she had a that she delivered at 20 weeks (or so) and that fetus had problems with it's spine not growing. It is unclear whether this was a perterm delivery, or a termination.) Hx Multiple Gestation: No Hx Ectopic : No Hx Complication: No Hx Induced Hypertens: No Hx Maternal Gestational Diabet: No Hx Hemorrhage: No Delivery History Hx Dystocia: No Hx Forceps Assisted Delivery: No Hx Vacuum Extraction Assisted: No Hx Placenta Abnormality: No Patient Past Medical History reports no medical history, though she is difficult to interview due to the sedation. She is awake at times and can answer questions. Social History/Family History Recreational Drug Use: Yes Smoking Cessation: Unknown if ever smoked 2nd Hand Smoke Exposure: No Immunizations Tetanus Booster (TDap): Unknown Rubella: unknown RPR/VDRL: Unknown GBS Status: Unknown HBsAG: Unknown OB - Admission Exam Physical Exam Vitals: Vital Signs 09/30/21 18:50 Temp 36.2 Pulse 89 Resp 20 B/P (MAP) 140/99 (113) HEENT: NCAT Heart: Rhythm Normal Abdomen: Gravid Extremities: Normal Cervical Dilatation: 9cm Effacement: 100% Station: -2 Membranes: Intact (When I examined the patient after she arrived to the floor, she had a large bulging bag and had SROM on exam. cervix completely dilated. Fluid was yellow to yellow green. Unsure if there was thin meconium noted. ) Heart Rate: 130's Accelerations: Accelerations Present Decelerations: No Decelerations Short Term Variability: Present Canine Service Teacher Variability: Average (6-25) Contractions on Admission: < 5 Minutes Apart Labs Laboratory Tests Test 09/30/21 18:55 09/30/21 19:03 09/30/21 19:30 Range/Units White Blood Count 21.5 H 4.3-11.0 10^3/uL Red Blood Count 3.80 3.80-5.11 10^6/uL Hemoglobin 9.9 L 11.5-16.0 g/dL Hematocrit 32 L 35-52 % Mean Corpuscular Volume 84 80-99 fL Mean Corpuscular Hemoglobin 26 25-34 pg Mean Corpuscular Hemoglobin Concent 31 L 32-36 g/dL Red Cell Distribution Width 14.6 H 10.0-14.5 % Platelet Count 368 130-400 10^3/uL Mean Platelet Volume 11.3 9.0-12.2 fL Immature Granulocyte % (Auto) 1 % Neutrophils (%) (Auto) 80 H 42-75 % Lymphocytes (%) (Auto) 13 12-44 % Monocytes (%) (Auto) 5 0-12 % Eosinophils (%) (Auto) 0 0-10 % Basophils (%) (Auto) 0 0-10 % Neutrophils # (Auto) 17.3 H 1.8-7.8 10^3/uL Lymphocytes # (Auto) 2.7 1.0-4.0 10^3/uL Monocytes # (Auto) 1.1 H 0.0-1.0 10^3/uL Eosinophils # (Auto) 0.1 0.0-0.3 10^3/uL Basophils # (Auto) 0.1 0.0-0.1 10^3/uL Immature Granulocyte # (Auto) 0.3 H 0.0-0.1 10^3/uL Neutrophils % (Manual) 81 % Lymphocytes % (Manual) 12 % Monocytes % (Manual) 7 % Blood Morphology Comment NORMAL Prothrombin Time 12.2 12.2-14.7 SEC INR Comment 0.9 0.8-1.4 Activated Partial Thromboplast Time 20 L 24-35 SEC Sodium Level 138 135-145 MMOL/L Potassium Level 4.5 3.6-5.0 MMOL/L Chloride Level 109 H 98-107 MMOL/L Carbon Dioxide Level 17 L 21-32 MMOL/L Anion Gap 12 5-14 MMOL/L Blood Urea Nitrogen 10 7-18 MG/DL Creatinine 0.73 0.60-1.30 MG/DL Estimat Glomerular Filtration Rate 118 BUN/Creatinine Ratio 14 Glucose Level 79 70-105 MG/DL Calcium Level 8.7 8.5-10.1 MG/DL Corrected Calcium 9.2 8.5-10.1 MG/DL Magnesium Level 1.8 1.6-2.4 MG/DL Total Bilirubin 0.4 0.1-1.0 MG/DL Aspartate Amino Transf (AST/SGOT) 31 5-34 U/L Alanine Aminotransferase (ALT/SGPT) 33 0-55 U/L Alkaline Phosphatase 297 H 40-136 U/L Lactate Dehydrogenase 223 H 125-220 U/L Total Protein 7.1 6.4-8.2 GM/DL Albumin 3.4 3.2-4.5 GM/DL Amylase Level 59 25-125 U/L Acetaminophen Level < 10 L 10-30 UG/ML Serum Alcohol < 10 <10 MG/DL Influenza Type A (RT-PCR) Not Detected Not Detecte Influenza Type B (RT-PCR) Not Detected Not Detecte SARS-CoV-2 RNA (RT-PCR) Not Detected Not Detecte Urine Color YELLOW Urine Clarity CLEAR Urine pH 6.5 5-9 Urine Specific [place] 1.025 H 1.016-1.022 Urine Protein TRACE H NEGATIVE Urine Glucose (UA) NEGATIVE NEGATIVE Urine Ketones NEGATIVE NEGATIVE Urine Nitrite NEGATIVE NEGATIVE Urine Bilirubin NEGATIVE NEGATIVE Urine Urobilinogen 1.0 < = 1.0 MG/DL Urine Leukocyte Esterase TRACE H NEGATIVE Urine RBC (Auto) TRACE-I H NEGATIVE Urine RBC 0-2 /HPF Urine WBC 2-5 /HPF Urine Squamous Epithelial Cells 0-2 /HPF Urine Crystals NONE /LPF Urine Bacteria LARGE H /HPF Urine Casts NONE /LPF Urine Mucus NEGATIVE /LPF Urine Culture Indicated YES Urine Opiates Screen NEGATIVE NEGATIVE Urine Oxycodone Screen NEGATIVE NEGATIVE Urine Methadone Screen NEGATIVE NEGATIVE Urine Propoxyphene Screen NEGATIVE NEGATIVE Urine Barbiturates Screen NEGATIVE NEGATIVE Ur Tricyclic Antidepressants Screen NEGATIVE NEGATIVE Urine Phencyclidine Screen NEGATIVE NEGATIVE Urine Amphetamines Screen POSITIVE H NEGATIVE Urine Methamphetamines Screen POSITIVE H NEGATIVE Urine Benzodiazepines Screen NEGATIVE NEGATIVE Urine Cocaine Screen NEGATIVE NEGATIVE Urine Cannabinoids Screen NEGATIVE NEGATIVE OB - Assessment/Plan/Diagnosis Assessment Assessment: active labor, other (drug (likely opioid) overdose) Admission Dx Labor drug overdose estimated 38 weeks gestation no care Admission Status: Inpatient Order (span 2 midnights) Reason for Inpatient Admission: labor Plan Plan: Expectant Management SHANTAL ROTHMAN DO Sep 30, 2021 21:30
--- NOTE | 2021-09-30 21:31 | OB Labor & Delivery Record ---
Vag Delivery Note Vag Delivery Note Date of Delivery: 09/30/21 Preoperative Diagnosis: Cassidy Cano is a 21 /Para 3 / 1, Gestational Age estimated of 38 weeks. Postoperative Diagnosis: Same Surgeon: SHANTAL ROTHMAN Anesthesia: none Delivery Type: vaginal, OP presentation Findings: Viable , apgars 9/9, weight 6#10 ounces Lacerations: none noted Intact placenta with 3 vessel cord. No nuchal cord, body cord or shoulder dystocia Cytotec 1000 mcg placed for hemorrhage prophylaxis Estimated Blood Loss: 750 ml Complications: drug overdose, forehead presentation Condition: Stable Description of Procedure: The patient is a 21 year old female who presented via EMS after a fentanyl overdose. she was found unresponsive with O2 sat in the 80%. Received Narcan in the ambulance and then in the ED. She was noted to be 9 + cm dilated and brought up to women's services quickly. Membranes were noted to be intact. Bedside US revealed cephalic presentation. On exam, however, head was noted to be high. She was admitted and brought to women's services. She had an antecubital IV placed in the ambulance that was positional. In the ED she was noted to be thrashing about. She was more sedated once we got to women's services. The straight cath ordered in the ED but not collected due to patient being out of control, was collected and there was 6-700 ml of dark orange, foul smelling urine noted. Some of this spilled so not accurate. An exam was done and she was complete with bulging membranes and there was SROM on exam with yellow-light green fluid. Head position could not be ascertained due to patient declination. She continued to have episodes of sedation and her O2 saturation would drop. She was given Narcan again, due to this. She was involuntarily pushing but stating "I don't want to do this". She was then set up for delivery. After she had been pushing for quite awhile, I was finally able to fully examine her and feel the head. It was noted that the head was presenting OP with a brow presentation. At this point, I asked patient to look at me and listen to what I am asking as she has been difficult to be in control, or was sedated. She was offered continued pushing the was she currently has been without descent, or manual rotation of the head, or section. She adamantly declined section. She verbally consented to manual rotation. I was able to rotate to OT with the occiput to the patient's left. She continued to push but mostly involuntarily. Her IV in the right AC was not working, so, during this time, the RN strip mine supervisor attempted IV placement which was difficult due to patient being sweaty and not cooperative. We were able to get her to push knees closed for a few pushes and then knees apart. The infant's head was delivered atraumatically in the OP position (but the head was not in brow presentation but now was flexed forward) . The shoulders and remainder of the 's body were then delivered without difficulty immediately. Upon delivery, the head was held below the level of the perineum and the mouth and nares were bulb suctioned. The cord was doubly clamped and cut and the infant was handed off to the pediatric staff. An intact placenta with 3-vessel cord delivered via Estefania and there was found to be minimal bleeding.~ As there was no IV access, 1000 mcg misoprostol was given pr. Vigorous fundal massage was performed and the fundus was found to be firm, but she did not allow continued fundal massage. Once the IV was replaced and was working, IV oxytocin was given. Mom was unable and/or uninterested in holding the child. Examination of the vagina and perineum revealed no laceration. Following the repair, sponge, instrument and needle counts were correct. Mom was sleeping but O2 sats were stable. Baby was taken to the new born nursery. Vitals - Labs Vital Signs - I&O Vital Signs Date Time Temp Pulse Resp B/P (MAP) Pulse Ox O2 Delivery O2 Flow Rate FiO2 09/30/21 18:50 36.2 89 20 140/99 (113) Labs Laboratory Tests 09/30/21 18:55: White Blood Count 21.5H, Red Blood Count 3.80, Hemoglobin 9.9L, Hematocrit 32L, Mean Corpuscular Volume 84, Mean Corpuscular Hemoglobin 26, Mean Corpuscular Hemoglobin Concent 31L, Red Cell Distribution Width 14.6H, Platelet Count 368, Mean Platelet Volume 11.3, Immature Granulocyte % (Auto) 1, Neutrophils (%) (Auto) 80H, Lymphocytes (%) (Auto) 13, Monocytes (%) (Auto) 5, Eosinophils (%) (Auto) 0, Basophils (%) (Auto) 0, Neutrophils # (Auto) 17.3H, Lymphocytes # (Auto) 2.7, Monocytes # (Auto) 1.1H, Eosinophils # (Auto) 0.1, Basophils # (Auto) 0.1, Immature Granulocyte # (Auto) 0.3H, Neutrophils % (Manual) 81, Lymphocytes % (Manual) 12, Monocytes % (Manual) 7, Blood Morphology Comment NORMAL, Prothrombin Time 12.2, INR Comment 0.9, Activated Partial Thromboplast Time 20L, Sodium Level 138, Potassium Level 4.5, Chloride Level 109H, Carbon Dioxide Level 17L, Anion Gap 12, Blood Urea Nitrogen 10, Creatinine 0.73, Estimat Glomerular Filtration Rate 118, BUN/Creatinine Ratio 14, Glucose Level 79, Calcium Level 8.7, Corrected Calcium 9.2, Magnesium Level 1.8, Total Bilirubin 0.4, Aspartate Amino Transf (AST/SGOT) 31, Alanine Aminotransferase (ALT/SGPT) 33, Alkaline Phosphatase 297H, Lactate Dehydrogenase 223H, Total Protein 7.1, Albumin 3.4, Amylase Level 59, Acetaminophen Level < 10L, Serum Alcohol < 10 09/30/21 19:03: Influenza Type A (RT-PCR) Not Detected, Influenza Type B (RT-PCR) Not Detected, SARS-CoV-2 RNA (RT-PCR) Not Detected 09/30/21 19:30: Urine Color YELLOW, Urine Clarity CLEAR, Urine pH 6.5, Urine Specific [place] 1.025H, Urine Protein TRACEH, Urine Glucose (UA) NEGATIVE, Urine Ketones NEGATIVE, Urine Nitrite NEGATIVE, Urine Bilirubin NEGATIVE, Urine Urobilinogen 1.0, Urine Leukocyte Esterase TRACEH, Urine RBC (Auto) TRACE-IH, Urine RBC 0-2, Urine WBC 2-5, Urine Squamous Epithelial Cells 0-2, Urine Crystals NONE, Urine Bacteria LARGEH, Urine Casts NONE, Urine Mucus NEGATIVE, Urine Culture Indicated YES, Urine Opiates Screen NEGATIVE, Urine Oxycodone Screen NEGATIVE, Urine Methadone Screen NEGATIVE, Urine Propoxyphene Screen NEGATIVE, Urine Barbiturates Screen NEGATIVE, Ur Tricyclic Antidepressants Screen NEGATIVE, Urine Phencyclidine Screen NEGATIVE, Urine Amphetamines Screen POSITIVEH, Urine Methamphetamines Screen POSITIVEH, Urine Benzodiazepines Screen NEGATIVE, Urine Cocaine Screen NEGATIVE, Urine Cannabinoids Screen NEGATIVE SHANTAL ROTHMAN DO Sep 30, 2021 21:31
[2021-09-30] MEDS ORDERED: DIBUCAINE 1% OINTMENT 30 GM TUBE TOP PRN (21:45)
[2021-09-30] MEDS ORDERED: TETANUS,DIPTH,PERTUSS P/F (BOOSTRIX) 0.5 ML VIAL IM ONE (21:45)
[2021-09-30] MEDS ORDERED: MEASLES,MUMPS,RUBELLA 1 EA INJ SQ ONE (21:45)
[2021-09-30] MEDS ORDERED: WITCH HAZEL(TUCKS) 40 EA JAR TOP PRN (21:45)
[2021-09-30] MEDS ORDERED: BENZOCAINE/MENTHOL (DERMOPLAST) 56 ML CAN TP PRN (21:45)
[2021-09-30 21:54] VITALS: BP 154/74
[2021-09-30 22:09] VITALS: BP 156/77
[2021-09-30 22:24] VITALS: BP 141/84
--- NOTE | 2021-09-30 23:04 | Diagnostic Imaging Report ---
PROCEDURE: CT head, face, and cervical spine without contrast. TECHNIQUE: Multiple contiguous axial images were obtained through the head, neck, and facial bones without the use of intravenous contrast. Sagittal and coronal reformations through the cervical spine and facial bones were also performed. Auto Exposure Controls were utilized during the CT exam to meet ALARA standards for radiation dose reduction. INDICATION: Fall. Head and neck pain. Facial contusion. COMPARISON: None. FINDINGS: CT head: The ventricles and cortical sulci are age-appropriate. There is no midline shift or mass-effect. No acute intracranial hemorrhage is seen. There is no CT evidence of acute territorial ischemia. No focal masses or collections are present. The calvarium is intact. CT face: No acute facial fractures are visualized. The mandible, zygomatic arches, and pterygoid plates are intact. The bilateral TMJ demonstrate normal articulation. No nasal bone fractures. The bony nasal septum is slightly deviated to the right without fracture. Retained secretions are seen in the left maxillary sinus. Mastoid air cells are well pneumatized. The globes and orbits are symmetric and unremarkable. No evidence of orbital rim fracture. CT cervical spine: No acute fracture or dislocation is seen in the cervical spine. No focal osseous lesions. Vertebral body heights are well-maintained. The craniocervical junction is well-maintained. Soft tissues of the neck are unremarkable. The included lung apices are clear. IMPRESSION: 1. No hemorrhage or focal intra-axial mass. No CT evidence of large acute territorial ischemia. 2. No acute fracture or dislocation in the cervical spine. 3. No acute facial fractures. Dictated by: Dictated on workstation # [id number]
[2021-09-30 23:27] VITALS: BP 125/72
[2021-10-01] MEDS: IBUPROFEN 600 MG (MOTRIN) TAB PO SCH ×5 (00:45→20:39)
[2021-10-01] MEDS: ACETAMINOPHEN 500 MG TAB (TYLENOL) PO SCH ×5 (00:49→20:39)
[2021-10-01 03:25] VITALS: BP 122/60
[2021-10-01] MEDS ORDERED: D5 LR IV SOLUTION 1,000 ML IV ONE (04:55)
[2021-10-01 05:58] LABS: BASOPHILS # (AUTO) 0.1 10^3/uL (0.0-0.1); BASOPHILS % (AUTO) 0 % (0-10); EOSINOPHILS # (AUTO) 0.1 10^3/uL (0.0-0.3); EOSINOPHILS % (AUTO) 0 % (0-10); HEMATOCRIT 28 % (35-52); HEMOGLOBIN 8.9 g/dL (11.5-16.0); LYMPHOCYTES % (AUTO) 11 % (12-44); MEAN CORPUSCULAR HEMOGLOBIN 26 pg (25-34); MEAN CORPUSCULAR HGB CONC 31 g/dL (32-36); MEAN CORPUSCULAR VOLUME 84 fL (80-99); MONOCYTES # (AUTO) 1.7 10^3/uL (0.0-1.0); MONOCYTES % (AUTO) 6 % (0-12); NEUTROPHILS # (AUTO) 23.4 10^3/uL (1.8-7.8); NEUTROPHILS % (AUTO) 82 % (42-75); PLATELET COUNT 340 10^3/uL (130-400); WHITE BLOOD COUNT 28.4 10^3/uL (4.3-11.0)
[2021-10-01 07:38] VITALS: BP 123/75
[2021-10-01] MEDS: PRENATAL VITAMIN 1 EA TAB PO SCH (07:51)
[2021-10-01] MEDS: CATHETER FLUSH 10 ML SYR IV SCH ×3 (07:52→21:28)
--- NOTE | 2021-10-01 08:38 | Postpartum Progress Note ---
Note Note Day # 1 s/p , drug/fentanyl overdose limited/no care. Per RN has been sleeping heavily all night. Kept pulse ox on and did not have desaturations. Pulse ox when I entered the room is 93%. Received several doses of narcan during labor. Bleeding has slowed s/p 100 0 mcg rectal misoprostol and 2 bags of pitocin (100 mg total). Subjective: Patient is very sleepy. I was able to arouse her, but she falls asleep while I am talking with her. she has minimal recollection of events of yesterday, but does state, "I was mean to you". she has not yet been out of bed and has not voided. RN asked me about straight cath, but we will get her up to void, or have her use a bed diaz. Has not yet eaten. Normal lochia. Pain is well controll ed. She has declined ibuprofen and tylenol Objective: 09/30/21 09/30/21 09/30/21 09/30/21 21:54 22:09 22:24 23:27 Temp 37.0 37.2 Pulse 77 85 85 90 Resp 18 18 18 18 B/P (MAP) 154/74 (100) 156/77 (103) 141/84 (103) 125/72 (89) Pulse Ox 98 100 100 96 O2 Delivery Room Air Room Air Room Air Room Air 10/01/21 10/01/21 03:25 07:38 Temp 37.3 36.8 Pulse 97 94 Resp 18 18 B/P (MAP) 122/60 (80) 123/75 (91) Pulse Ox 96 95 O2 Delivery Room Air Room Air 10/01/21 00:00 Intake Total 2000 ml Balance 2000 ml Laboratory Tests Test 09/30/21 18:55 09/30/21 19:03 09/30/21 19:30 10/01/21 05:50 Range/Units White Blood Count 21.5 H 28.4 H 4.3-11.0 10^3/uL Red Blood Count 3.80 3.38 L 3.80-5.11 10^6/uL Hemoglobin 9.9 L 8.9 L 11.5-16.0 g/dL Hematocrit 32 L 28 L 35-52 % Mean Corpuscular Volume 84 84 80-99 fL Mean Corpuscular Hemoglobin 26 26 25-34 pg Mean Corpuscular Hemoglobin Concent 31 L 31 L 32-36 g/dL Red Cell Distribution Width 14.6 H 14.6 H 10.0-14.5 % Platelet Count 368 340 130-400 10^3/uL Mean Platelet Volume 11.3 11.0 9.0-12.2 fL Immature Granulocyte % (Auto) 1 1 % Neutrophils (%) (Auto) 80 H 82 H 42-75 % Lymphocytes (%) (Auto) 13 11 L 12-44 % Monocytes (%) (Auto) 5 6 0-12 % Eosinophils (%) (Auto) 0 0 0-10 % Basophils (%) (Auto) 0 0 0-10 % Neutrophils # (Auto) 17.3 H 23.4 H 1.8-7.8 10^3/uL Lymphocytes # (Auto) 2.7 3.0 1.0-4.0 10^3/uL Monocytes # (Auto) 1.1 H 1.7 H 0.0-1.0 10^3/uL Eosinophils # (Auto) 0.1 0.1 0.0-0.3 10^3/uL Basophils # (Auto) 0.1 0.1 0.0-0.1 10^3/uL Immature Granulocyte # (Auto) 0.3 H 0.3 H 0.0-0.1 10^3/uL Neutrophils % (Manual) 81 % Lymphocytes % (Manual) 12 % Monocytes % (Manual) 7 % Blood Morphology Comment NORMAL Prothrombin Time 12.2 12.2-14.7 SEC INR Comment 0.9 0.8-1.4 Activated Partial Thromboplast Time 20 L 24-35 SEC Sodium Level 138 135-145 MMOL/L Potassium Level 4.5 3.6-5.0 MMOL/L Chloride Level 109 H 98-107 MMOL/L Carbon Dioxide Level 17 L 21-32 MMOL/L Anion Gap 12 5-14 MMOL/L Blood Urea Nitrogen 10 7-18 MG/DL Creatinine 0.73 0.60-1.30 MG/DL Estimat Glomerular Filtration Rate 118 BUN/Creatinine Ratio 14 Glucose Level 79 70-105 MG/DL Calcium Level 8.7 8.5-10.1 MG/DL Corrected Calcium 9.2 8.5-10.1 MG/DL Magnesium Level 1.8 1.6-2.4 MG/DL Total Bilirubin 0.4 0.1-1.0 MG/DL Aspartate Amino Transf (AST/SGOT) 31 5-34 U/L Alanine Aminotransferase (ALT/SGPT) 33 0-55 U/L Alkaline Phosphatase 297 H 40-136 U/L Lactate Dehydrogenase 223 H 125-220 U/L Total Protein 7.1 6.4-8.2 GM/DL Albumin 3.4 3.2-4.5 GM/DL Amylase Level 59 25-125 U/L Acetaminophen Level < 10 L 10-30 UG/ML Serum Alcohol < 10 <10 MG/DL Influenza Type A (RT-PCR) Not Detected Not Detecte Influenza Type B (RT-PCR) Not Detected Not Detecte SARS-CoV-2 RNA (RT-PCR) Not Detected Not Detecte Urine Color YELLOW Urine Clarity CLEAR Urine pH 6.5 5-9 Urine Specific [place] 1.025 H 1.016-1.022 Urine Protein TRACE H NEGATIVE Urine Glucose (UA) NEGATIVE NEGATIVE Urine Ketones NEGATIVE NEGATIVE Urine Nitrite NEGATIVE NEGATIVE Urine Bilirubin NEGATIVE NEGATIVE Urine Urobilinogen 1.0 < = 1.0 MG/DL Urine Leukocyte Esterase TRACE H NEGATIVE Urine RBC (Auto) TRACE-I H NEGATIVE Urine RBC 0-2 /HPF Urine WBC 2-5 /HPF Urine Squamous Epithelial Cells 0-2 /HPF Urine Crystals NONE /LPF Urine Bacteria LARGE H /HPF Urine Casts NONE /LPF Urine Mucus NEGATIVE /LPF Urine Culture Indicated YES Urine Opiates Screen NEGATIVE NEGATIVE Urine Oxycodone Screen NEGATIVE NEGATIVE Urine Methadone Screen NEGATIVE NEGATIVE Urine Propoxyphene Screen NEGATIVE NEGATIVE Urine Barbiturates Screen NEGATIVE NEGATIVE Ur Tricyclic Antidepressants Screen NEGATIVE NEGATIVE Urine Phencyclidine Screen NEGATIVE NEGATIVE Urine Amphetamines Screen POSITIVE H NEGATIVE Urine Methamphetamines Screen POSITIVE H NEGATIVE Urine Benzodiazepines Screen NEGATIVE NEGATIVE Urine Cocaine Screen NEGATIVE NEGATIVE Urine Cannabinoids Screen NEGATIVE NEGATIVE Physical Exam: General - Alert and oriented, no apparent distress Abdomen - Soft, appropriately tender to palpation, non-distended, fundus firm at umbilicus Extremities - no edema, negative Lady's bilaterally Assessment: 1. post- day # 1, status post vaginal delivery. Recovering well, hemodynamically stable 2. Drug overdose. Reportedly fentanyl per SO that has not been at the hospit al. UDS was neg for opioids but + meth and + amphetamines. Drug screen on baby is pending. Plan: Routine care. Encourage ambulation. Ferrous sulfate supplementation. litigation services manager consult has been placed. Vitals - Labs Vital Signs - I&O Vital Signs Date Time Temp Pulse Resp B/P (MAP) Pulse Ox O2 Delivery O2 Flow Rate FiO2 10/01/21 07:38 36.8 94 18 123/75 (91) 95 Room Air 10/01/21 03:25 37.3 97 18 122/60 (80) 96 Room Air 09/30/21 23:27 37.2 90 18 125/72 (89) 96 Room Air 09/30/21 22:24 37.0 85 18 141/84 (103) 100 Room Air 09/30/21 22:09 85 18 156/77 (103) 100 Room Air 09/30/21 21:54 77 18 154/74 (100) 98 Room Air 09/30/21 19:55 76 18 141/63 (89) 98 Room Air 09/30/21 19:20 98 Room Air 09/30/21 18:50 36.2 89 20 140/99 (113) I & O 10/01/21 07:00 Intake Total 2000 ml Balance 2000 ml Labs Laboratory Tests 09/30/21 18:55: White Blood Count 21.5H, Red Blood Count 3.80, Hemoglobin 9.9L, Hematocrit 32L, Mean Corpuscular Volume 84, Mean Corpuscular Hemoglobin 26, Mean Corpuscular Hemoglobin Concent 31L, Red Cell Distribution Width 14.6H, Platelet Count 368, Mean Platelet Volume 11.3, Immature Granulocyte % (Auto) 1, Neutrophils (%) (Auto) 80H, Lymphocytes (%) (Auto) 13, Monocytes (%) (Auto) 5, Eosinophils (%) (Auto) 0, Basophils (%) (Auto) 0, Neutrophils # (Auto) 17.3H, Lymphocytes # (Auto) 2.7, Monocytes # (Auto) 1.1H, Eosinophils # (Auto) 0.1, Basophils # (Auto) 0.1, Immature Granulocyte # (Auto) 0.3H, Neutrophils % (Manual) 81, Lymphocytes % (Manual) 12, Monocytes % (Manual) 7, Blood Morphology Comment NORM AL, Prothrombin Time 12.2, INR Comment 0.9, Activated Partial Thromboplast Time 20L, Sodium Level 138, Potassium Level 4.5, Chloride Level 109H, Carbon Dioxide Level 17L, Anion Gap 12, Blood Urea Nitrogen 10, Creatinine 0.73, Estimat Glomerular Filtration Rate 118, BUN/Creatinine Ratio 14, Glucose Level 79, Calcium Level 8.7, Corrected Calcium 9.2, Magnesium Level 1.8, Total Bilirubin 0.4, Aspartate Amino Transf (AST/SGOT) 31, Alanine Aminotransferase (ALT/SGPT) 33, Alkaline Phosphatase 297H, Lactate Dehydrogenase 223H, Total Protein 7.1, Albumin 3.4, Amylase Level 59, Acetaminophen Level < 10L, Serum Alcohol < 10 09/30/21 19:03: Influenza Type A (RT-PCR) Not Detected, Influenza Type B (RT-PCR) Not Detected, SARS-CoV-2 RNA (RT-PCR) Not Detected 09/30/21 19:30: Urine Color YELLOW, Urine Clarity CLEAR, Urine pH 6.5, Urine Specific [place] 1.025H, Urine Protein TRACEH, Urine Glucose (UA) NEGATIVE, Urine Ketones NEGATIVE, Urine Nitrite NEGATIVE, Urine Bilirubin NEGATIVE, Urine Urobilinogen 1.0, Urine Leukocyte Esterase TRACEH, Urine RBC (Auto) TRACE-IH, Urine RBC 0-2, Urine WBC 2-5, Urine Squamous Epithelial Cells 0-2, Urine Crystals NONE, Urine Bacteria LARGEH, Urine Casts NONE, Urine Mucus NEGATIVE, Urine Culture Indicated YES, Urine Opiates Screen NEGATIVE, Urine Oxycodone Screen NEGATIVE, Urine Methadone Screen NEGATIVE, Urine Propoxyphene Screen NEGATIVE, Urine Barbit urates Screen NEGATIVE, Ur Tricyclic Antidepressants Screen NEGATIVE, Urine Phencyclidine Screen NEGATIVE, Urine Amphetamines Screen POSITIVEH, Urine Methamphetamines Screen POSITIVEH, Urine Benzodiazepines Screen NEGATIVE, Urine Cocaine Screen NEGATIVE, Urine Cannabinoids Screen NEGATIVE 10/01/21 05:50: White Blood Count 28.4H, Red Blood Count 3.38L, Hemoglobin 8.9L, Hematocrit 28L, Mean Corpuscular Volume 84, Mean Corpuscular Hemoglobin 26, Mean Corpuscular Hemoglobin Concent 31L, Red Cell Distribution Width 14.6H, Platelet Count 340, Mean Platelet Volume 11.0, Immature Granulocyte % (Auto) 1, Neutrophils (%) (Auto) 82H, Lymphocytes (%) (Auto) 11L, Monocytes (%) (Auto) 6, Eosinophils (%) (Auto) 0, Basophils (%) (Auto) 0, Neutrophils # (Auto) 23.4H, Lymphocytes # (Auto) 3.0, Monocytes # (Auto) 1.7H, Eosinophils # (Auto) 0.1, Basophils # (Auto) 0.1, Immature Granulocyte # (Auto) 0.3H Microbiology 09/30/21 Urine Culture - Preliminary, Resulted Escherichia coli SHANTAL ROTHMAN DO Oct 01, 2021 08:38
[2021-10-01] MEDS: DOCUSATE SODIUM 100 MG (COLACE) CAP PO SCH ×2 (10:18→20:39)
[2021-10-01] MEDS: FERROUS SULF 325 MG (IRON) TAB PO SCH (10:19)
[2021-10-01 12:01] VITALS: BP 125/58
[2021-10-01] MEDS ORDERED: cefTRIAXone 1 GM PRE-MIX 50 ML IV NR (16:45)
[2021-10-01 17:20] VITALS: BP 121/56
[2021-10-01] MEDS: D5 LR IV SOLUTION 1,000 ML IV SCH (17:30)
[2021-10-01 20:40] VITALS: BP 113/59
[2021-10-01] MEDS: OXYTOCIN PRE-MIX DRIP 500 ML IV SCH (21:27)
[2021-10-01 22:24] LABS: HEPATITIS C ANTIBODY C Non-Reactive (Non-Reactive)
[2021-10-02 00:06] VITALS: BP 115/56
[2021-10-02] MEDS: ACETAMINOPHEN 500 MG TAB (TYLENOL) PO SCH ×3 (02:51→15:39)
[2021-10-02] MEDS: IBUPROFEN 600 MG (MOTRIN) TAB PO SCH ×3 (02:51→15:39)
[2021-10-02 03:44] VITALS: BP 116/56
[2021-10-02] MEDS: CATHETER FLUSH 10 ML SYR IV SCH (05:35)
--- NOTE | 2021-10-02 07:16 | Progress Note ---
Standard Progress Note Progress Notes/Assess & Plan Date Seen by a Provider: Oct 02, 2021 Time Seen by a Provider: 07:00 Progress/Assessment & Plan Subjective patient states pain is well controlled. Tolerating p.o. Lochia is consistent with menses. No other complaints of. Objective; vital signs are stable patient is afebrile General alert 90x3 in no acute distress resting comfortably in the bed Chest is nonlabored Abdomen fundus is firm below the level of the umbilicus with slight tenderness on exam Extremities are nontender Assessment status post continuous vaginal delivery day 2 Plan continue routine care Objective; vital signs are stable patient is afebrile General alert and oriented x3 in no acute distress resting comfortably in the bed Chest is nonlabored Abdomen fundus is firm below the level of the umbilicus with slight tenderness on exam Extremities are nontender Assessment status post spontaneous vaginal delivery day 2 Plan continue routine care cont IV Abx for UTI monitor for signs/symptoms of endometritis consider dismissal today LYLY ARCOS MD Oct 02, 2021 07:16
[2021-10-02] MEDS ORDERED: NALO4SPR NS (07:23)
[2021-10-02] MEDS ORDERED: IBUP-844 PO (07:23)
[2021-10-02] MEDS ORDERED: WTCHGPD TOP (07:23)
[2021-10-02] MEDS: FERROUS SULF 325 MG (IRON) TAB PO SCH (09:00)
[2021-10-02] MEDS: PRENATAL VITAMIN 1 EA TAB PO SCH (09:00)
[2021-10-02] MEDS: DOCUSATE SODIUM 100 MG (COLACE) CAP PO SCH (09:00)
[2021-10-02] MEDS ORDERED: cefTRIAXone 1 GM PRE-MIX 50 ML IV NR (09:00)
[2021-10-02 09:32] VITALS: BP 122/56
--- NOTE | 2021-10-03 07:30 | Short Stay Summary ---
Discharge Summary Hospital Course Was the Problem List Reviewed?: Yes Final Diagnosis: drug overdose, no care, 38 week gestation Hospital Course Date of Admission: Sep 30, 2021 at 19:41 Admission Diagnosis : Family Physician/Provider: No,Local Physician Date of Discharge: 10/03/21 Discharge Diagnosis: drug overdose no care antepartum anemia and acute blood loss anemia Hospital Course: This patient was brought to [facility] after a reported fentanyl overdose. She was with a suggested EDC of 10/07-10/24 depending on patient recollection or SO recollection. However, she had been a patient in the ED in 02/2021 and an US report gave EDC of 10/13/2021. This put EDC at 38 1/7 weeks. She was given several doses of nasal and then IV Narcan. When she arrived at the ED she was alternately combative or sedated. When I arrived, she was noted to be diane every 2 minutes. There was suggestion that she had been wet when she was found and unknown whether this was amniotic fluid or something else. But it was ruled to not be amniotic fluid. She was 9 cm dilated when I examined her so she was brought, stable, to women's services to be set up for delivery. After she was brought to the floor, she was again examined and had spontaneous ROM with yellow or light green fluid. She was completely dilated. She was set up for delivery, but again, was either combative or sedated and IV Narcan was again given. She had difficult IV access, so an additional IV was placed. She was uncooperative with exam, so though she had been pushing, when I was able to get a good exam, she was noted to have fetus with an op brow presentation. She was offered to continue pushing, vs rotation manually vs section. She adamently declined section. She was beggin for an epidural, but it was discussed that anesthesia was not yet present, she was completly dilated and she had been given Narcan, so an epidural was not feasible at that time. I was able to manually rotate the fetus a small amount, but enough to allow the head to flex forward and the vertex was presenting. She then delivered the in OP presentation. Following delivery, she was admitted to women's services. She was very sedate and a continuous pulse ox was continued after delivery to monitor for desaturation. She did not require any additional doses of Narcan. Labs and Pending Lab Test: Microbiology 09/30/21 Urine Culture - Final, Complete Escherichia coli Home Meds Active Narcan (Naloxone HCl) 4 Mg Mor[place] 2 Mg NS PRN 1 Days A.e.r Pads (Witch Batsheva/Glycerin) 40 Ea Pad 1 Ea TOP UD PRN 10 Days Ibu (Ibuprofen) 600 Mg Tablet 600 Mg PO Q6HR 10 Days Discharge Physical Examination Allergies: Coded Allergies: diphenhydramine (Verified Adverse Reaction, Severe, hallucinations, 02/28/21) Discharge Summary Date of Admission Sep 30, 2021 at 19:41 Date of Discharge Oct 02, 2021 at 15:45 Discharge Date: Oct 02, 2021 SHANTAL ROTHMAN DO Oct 03, 2021 07:30
== END 2021-10-02 15:45 | disposition home or self-care (01) | DRG 806 ==
LOC: EDUNIT# 18:51 → ER 18:52 → WS 19:41 → LDRP 23:00
PROVIDERS: ADMIT Obstetrics & Gynecology; ATTEND Obstetrics & Gynecology
PROC: 10E0XZZ Delivery of Products of Conception, External Approach (ICD-10-PCS; principal; 2021-09-30)
DX: O9A.22 Injury, poisoning and certain other consequences of external causes complicating childbirth (principal); D62 Acute posthemorrhagic anemia; Z37.0 Single live birth; N39.0 Urinary tract infection, site not specified; T40.2X1A Poisoning by other opioids, accidental (unintentional), initial encounter; Z3A.38 38 weeks gestation of pregnancy; Z20.822 Contact with and (suspected) exposure to COVID-19; O64.0XX0 Obstructed labor due to incomplete rotation of fetal head, not applicable or unspecified; O23.43 Unspecified infection of urinary tract in pregnancy, third trimester; B96.20 Unspecified Escherichia coli [E. coli] as the cause of diseases classified elsewhere; O99.02 Anemia complicating childbirth
CPT/HCPCS: 36415; 70450; 70486; 72125; 80053; 80074; 80306; 80320; 80329; 81000; 82150; 83615; 83735; 85007; 85025; 85027; 85610; 85730; 86703; 86705; 86706; 86762; 86850; 86900; 86901; 87077; 87088; 87186; 87636; 93005; 93041

== ENCOUNTER 2022-06-07 16:35 | Emergency (ER) | payer SELFPAY ==
[~2022-06-07] VITALS: Ht 167 cm; Wt 56.0 kg
[~2022-06-07 16:35] MED LIST changes: +IBUP-844 PO; +NALO4SPR NS; +WTCHGPD TOP
[2022-06-07] MEDS ORDERED: SULF1TAB38 PO (16:59)
--- NOTE | 2022-06-07 16:59 | ED Integumentary General ---
General Chief Complaint: Skin/Wound Problems Stated Complaint: SORE ON RIGHT LEG Nursing Triage Note: THINKS SHE HAS A STAFF INFECTION RIGHT LOWER LEG. Source: patient Exam Limitations: no limitations History of Present Illness Date Seen by Provider: Jun 07, 2022 Time Seen by Provider: 16:51 Initial Comments 20-year-old female presents for a wound to her right lower leg. Symptoms started about a week ago and have progressed. Started as a single area now with a couple areas in the right lower leg, whitman region. No fevers chills nausea or vomiting. No drainage but it is scabbing. It is tender to palpation. She is not on antibiotics. Allergies and Home Medications Allergies Coded Allergies: diphenhydramine (Verified Adverse Reaction, Severe, hallucinations, 02/03 01/22) Patient Home Medication List Home Medication List Reviewed: Yes Ibuprofen (Ibu) 600 Mg Tablet, 600 MG PO Q6HR Prescribed by: Dorcas Murry on 10/02/21928 Naloxone HCl (Narcan) 4 Mg [place], 2 MG NS PRN Prescribed by: Dorcas Murry on 10/02/21928 Sulfamethoxazole/Trimethoprim (Bactrim Ds Tablet) 1 Each Tablet, 1 EACH PO BID Prescribed by: JOVANNA LU MD on 06/07/22 165 [place]/Glycerin (A.e.r Pads) 40 Ea Pad, 1 EA TOP UD PRN for PAIN- SEE INSTRUCTIONS Prescribed by: Dorcas Murry on 10/02/21928 Review of Systems Review of Systems Constitutional: no symptoms reported EENTM: no symptoms reported Respiratory: no symptoms reported Cardiovascular: no symptoms reported Gastrointestinal: no symptoms reported Genitourinary: no symptoms reported Musculoskeletal: no symptoms reported Skin: rash Psychiatric/Neurological: No Symptoms Reported Endocrine: No Symptoms Reported Hematologic/Lymphatic: No Symptoms Reported Past Vmvwycv-Pffgod-Stonos Hx Patient Social History Tobacco Use?: Yes Smoking Status: Current Everyday Smoker Use of E-Cig and/or Vaping dev: No Substance use?: No Alcohol Use?: No Immunizations Up To Date Tetanus Booster (TDap): Unknown Seasonal Allergies Seasonal Allergies: No Past Medical History Surgeries: No Respiratory: No Cardiac: No Neurological: No Last Menstrual Period: Jun 06, 2022 Genitourinary: No Gastrointestinal: No Musculoskeletal: No Endocrine: No HEENT: No Cancer: No Psychosocial: Yes (SUBSTANCE ABUSE) Depression Integumentary: No (TATTOOS) Blood Disorders: No Family Medical History Reviewed Nursing Family Hx No Pertinent Family Hx Physical Exam Vital Signs Vital Signs - First Documented 06/07/22 16:50 Temp 36.8 Pulse 95 Resp 16 B/P (MAP) 138/69 (92) Pulse Ox 99 O2 Delivery Room Air Capillary Refill : Less Than 3 Seconds General Appearance: WD/WN, no apparent distress HEENT: normal ENT inspection, pharynx normal Neck: non-tender Cardiovascular: regular rate, rhythm, no murmur Respiratory: chest non-tender, lungs clear, normal breath sounds, no r espiratory distress, no accessory muscle use Gastrointestinal: normal bowel sounds, soft, no organomegaly Extremities: normal range of motion, normal inspection, no pedal edema, other (Tenderness palpation the area skin lesion. There is induration without fluctuance to the distal anterior whitman on the right side. There is a scabbed area centrally. There is another shallow ulceration, wounds superior and lateral to this. Again no fluctuance. No surrounding erythema. These are all at the base of hair follicles.) Neurologic/Psychiatric: alert, oriented x 3 Skin: warm/dry, other (As described above) Lymphatic: no adenopathy Progress/Results/Core Measures Results/Orders Vital Signs/I&O 06/07/22 16:50 Temp 36.8 Pulse 95 Resp 16 B/P (MAP) 138/69 (92) Pulse Ox 99 O2 Delivery Room Air Blood Pressure Mean: 92 Departure Communication (Admissions) Patient is hemodynamically stable. No evidence for systemic infection. She does have folliculitis in several locations. No fluctuant abscess that would require drainage. Plan for antibiotics at this time. Given strict return precautions. Discharged in stable condition. Impression Primary Impression: Folliculitis Disposition: HOME, SELF-CARE Condition: Stable Departure-Patient Inst. Referrals: NO,LOCAL PHYSICIAN (PCP/Family) Primary Care Physician Patient Instructions: Bacterial Folliculitis (DC) Add. Discharge Instructions: Take the antibiotics as prescribed until they are gone. Use antibacterial bar soap as discussed. Refrain from shaving your legs until the lesions heal. Return to the emergency department for any severe concerns. Please note that antibiotics may interfere with any control you may be on so you need to use other forms of protection while taking antibiotics. All discharge instructions reviewed with patient and/or family. Voiced understanding. Scripts Sulfamethoxazole/Trimethoprim (Bactrim Ds Tablet) 1 Each Tablet 1 EACH PO BID for 7 Days, #14 TAB Prov: JOVANNA LU DO 06/07/22 JOVANNA LU DO Jun 07, 2022 16:59
[2022-06-07 17:00] VITALS: BP 138/69
== END 2022-06-07 17:02 | disposition home or self-care (01) ==
LOC: EDUNIT# 16:35 → ER 16:38
DX: L73.9 Follicular disorder, unspecified (principal); F17.200 Nicotine dependence, unspecified, uncomplicated; Z28.310 Unvaccinated for COVID-19
CPT/HCPCS: 99281

== ENCOUNTER 2023-04-24 16:16 | Emergency (ER) | payer SELFPAY ==
[~2023-04-24] VITALS: Ht 107.8 cm; Wt 63.5 kg
[~2023-04-24 16:16] MED LIST changes: +SULF1TAB38 PO
[2023-04-24 16:34] VITALS: BP 122/69
[2023-04-24] MEDS ORDERED: NS IV 1000 ML 1,000 ML IV STA (17:13)
[2023-04-24] MEDS ORDERED: KETOROLAC INJ 30 MG/ML VIAL IVP ONE (17:15)
[2023-04-24] MEDS ORDERED: PROCHLORPERAZINE INJ 10 MG/2ML VIAL IV ONE (17:15)
[2023-04-24] MEDS ORDERED: dexAMETHasone INJ 10 MG/ML 1 ML VIAL IV ONE (17:15)
--- NOTE | 2023-04-24 17:17 | ED Headache ---
General Chief Complaint: Head/Cervical Problems Stated Complaint: HEADACHE/FEVER Nursing Triage Note: Patient c/o headache that started 4 days ago with no Hx. of migraine headaches. Patient states this is the worst headache of her "life." Patient c/o nausea, but denies any vomiting. Patient c/o being light sensitive. Patient denies any recent head injuries. Patient states she has had a 99.7 temp last night. Patient denies any sore throat, bodyaches, or ear pain. Patient denies any cough, cold, or congestion. Patient denies any sinus pressure. Source: patient Exam Limitations: no limitations (HATTIE TEJADA) History of Present Illness Date Seen by Provider: Apr 24, 2023 Time Seen by Provider: 17:15 Initial Comments Patient is a 22-year-old female presents ED for headache for the past 4 days. Patient states pain is behind her eyes bilateral. Described as a pressure that is constant. Rates pain 6 out of 10. She states the pressure does migrate throughout. Pain does not increase with exertion. She denies of any current change in vision. She reports sensitivity to light and noise. She reports nausea without any vomiting. Denies of any flulike symptoms such as vomiting, diarrhea, cough, runny nose, sore throat, nasal congestion. She denies history of severe headaches like today. She has had headaches in the past but not as severe as today. No known medical problems. Last menstrual cycle in the last month. Denies of any pain with urination frequent urination. She has been taken Excedrin Migraine and Tylenol without much improvement. She denies any drug use. Patient denies of any unilateral muscle weakness or sensory changes. (HATTIE TEJADA) Allergies and Home Medications Allergies Coded Allergies: diphenhydramine (Verified Adverse Reaction, Severe, hallucinations, 02/28/21) Patient Home Medication List Home Medication List Reviewed: Yes (HATTIE TEJADA) Ibuprofen (Ibu) 600 Mg Tablet, 600 MG PO Q6HR Prescribed by: Dorcas Murry on 10/02/21928 Naloxone HCl (Narcan) 4 Mg [place], 2 MG NS PRN Prescribed by: Dorcas Murry on 10/02/21928 Sulfamethoxazole/Trimethoprim (Bactrim Ds Tablet) 1 Each Tablet, 1 EACH PO BID Prescribed by: JOVANNA LU MD on 06/07/22 6356 Witch Batsheva/Glycerin (A.e.r Pads) 40 Ea Pad, 1 EA TOP UD PRN for PAIN- SEE INSTRUCTIONS Prescribed by: Dorcas Murry on 10/02/21 0929 Review of Systems Review of Systems Constitutional: No chills, No diaphoresis; malaise, weakness Eyes: Blurred Vision, Drainage, Decreased Acuity Ears, Nose, Mouth, Throat: denies ear pain, denies ear discharge Respiratory: No cough, No dyspnea on exertion, No orthopnea, No short of breath Cardiovascular: No chest pain, No edema Gastrointestinal: No abdominal pain; nausea; No vomiting Genitourinary: No decreased output, No discharge Musculoskeletal: No back pain, No gout Skin: No change in color, No change in hair/nails Psychiatric/Neurological: Headache (HATTIE TEJADA) Past Mdhcnwo-Hvisze-Iwqfri Hx Patient Social History Tobacco Use?: Yes Tobacco type used: Cigarettes Smoking Status: Current Everyday Smoker Use of E-Cig and/or Vaping dev: No Substance use?: No Alcohol Use?: No Pt feels they are or have been: No (HATTIE TEJADA) Immunizations Up To Date Tetanus Booster (TDap): Unknown Influenza Vaccine Up-to-Date: No; Not Current (HATTIE TEJADA) Seasonal Allergies Seasonal Allergies: No (HATTIE TEJADA) Past Medical History Surgeries: No Respiratory: No Cardiac: No Neurological: No Last Menstrual Period: Mar 09, 2023 Genitourinary: No Gastrointestinal: No Musculoskeletal: No Endocrine: No HEENT: No Cancer: No Psychosocial: Yes (SUBSTANCE ABUSE) Depression Integumentary: No (TATTOOS) Blood Disorders: No (HATTIE TEJADA) Family Medical History No Pertinent Family Hx (HATTIE TEJADA) Physical Exam Vital Signs Vital Signs - First Documented 04/24/23 16:34 Temp 37.0 Pulse 95 Resp 12 B/P (MAP) 122/69 (86) O2 Delivery Room Air (COMFORT BALLARD MD) Vital Signs Capillary Refill : (HATTIE TEJADA) Height, Weight, BMI Height: 5'5.00" Weight: 145lbs. oz. 65.920438jl; 54.00 BMI Method:Estimated General Appearance: WD/WN, no apparent distress HEENT: PERRL/EOMI, normal ENT inspection, TMs normal, pharynx normal Neck: non-tender, full range of motion, supple Cardiovascular: regular rate, rhythm, no edema, no gallop, no JVD Respiratory: chest non-tender, lungs clear, normal breath sounds, no respiratory distress Gastrointestinal: normal bowel sounds, non tender, soft Back: normal inspection, no CVA tenderness, no vertebral tenderness Extremities: normal range of motion, non-tender, normal inspection, no pedal edema Coordination/Gait: normal finger to nose, normal gait Motor/Sensory: no motor deficit, no sensory deficit, no pronator drift Skin: normal color, warm/dry (HATTIE TEJADA) Progress/Results/Core Measures Results/Orders Medications Given in ED Current Medications Medications Dose Ordered Sig/Demetri Route Start Time Stop Time Status Last Admin Dose Admin Dexamethasone Sodium Phosphate 10 mg ONCE ONCE IV 04/24/23 17:15 04/24/23 17:16 DC 04/24/23 17:27 10 MG Ketorolac Tromethamine 30 mg ONCE ONCE IVP 04/24/23 17:15 04/24/23 17:16 DC 04/24/23 17:27 30 MG Prochlorperazine Edisylate 10 mg ONCE ONCE IV 04/24/23 17:15 04/24/23 17:16 DC 04/24/23 17:27 10 MG (COMFORT BALLARD MD) Vital Signs/I&O 04/24/23 16:34 Temp 37.0 Pulse 95 Resp 12 B/P (MAP) 122/69 (86) O2 Delivery Room Air (COMFORT BALLARD MD) Blood Pressure Mean: 86 Departure Communication (PCP) Differential diagnosis migraine, intracranial bleed, allergies, viral syndrome, brain lesion. Patient reports history of headache. No history of migraines. Denies worst headache of her life but states she has never had a pain this severe. She rates pain 6 out of 10. Patient afebrile. Neuro exam unremarkable. She has no focal neural deficits. Denies chest pain short of breath cough, sore throat, ear pain. Neuro exam unremarkable. Last menstrual cycle ended last month. She would like to be checked for . No vaginal bleeding, vaginal discharge or urinary symptoms. Provided a migraine cocktail and CT scan of her head since this is abnormal to have a headache for this long. Her neuro exam was grossly unremarkable which was reassuring. She has no nasal congestion or frontal or maxillary sinus tenderness suggesting sinusitis. Bilateral TMs clear. Before obtaining CT scan of the head patient states she needed to go. She was tearful. Patient left AMA. I was not able to obtain imaging or see if her symptoms improved after medication. She acknowledges the risk of leaving without a proper diagnosis. (HATTIE TEJADA) Impression Primary Impression: Headache Disposition: 07 AGAINST MEDICAL ADVICE Condition: Stable/Unchanged Departure-Patient Inst. Decision time for Depature: 17:46 (HATTIE TEJADA) Referrals: NO,LOCAL PHYSICIAN (PCP/Family) Primary Care Physician Patient Instructions: Headache, Adult (DC) ATTENDING PHYSICIAN NOTE: I was physically present as attending physician in the emergency department during the care of this patient, but I was not directly involved in the decision making or delivery of care for this patient. (COMFORT BALLARD MD) HATTIE TEJADA Apr 24, 2023 17:17 COMFORT BALLARD MD Apr 24, 2023 19:27
== END 2023-04-24 17:50 | disposition left against medical advice (07) ==
LOC: EDUNIT# 16:16 → ER 16:20
DX: R51.9 Headache, unspecified (principal); F17.210 Nicotine dependence, cigarettes, uncomplicated; Z79.899 Other long term (current) drug therapy; Z86.69 Personal history of other diseases of the nervous system and sense organs
CPT/HCPCS: 96374; 96375